=== PATIENT | male | born 1955 | race Caucasian/White ===

== ENCOUNTER 2018-07-28 19:03 | Inpatient (IN) | payer MEDICARE ==
[~2018-07-28] VITALS: Ht 185.4 cm; Wt 77.1 kg
--- NOTE | ~2018-07-28 | CN ---
PATIENT NAME:SERVANDO HAYES MEDICAL RECORD: [id number] : 59 LOCATION:D.MS [id number] ADMIT DATE: 07/28/18 ACCOUNT: [id number] CONSULTING PHYSICIAN: CHARY SOMMERS MD REFERRING PHYSICIAN: ARGELIA GROSS MD DATE OF CONSULTATION: 07/31/2018 HISTORY OF PRESENT ILLNESS: A 63-year-old gentleman with a history of cirrhosis, severe obstructive pulmonary disease. Admitted with shortness of breath, volume retention, point of freddy orthopnea, PND. Had some atypical chest pain, it is between the scapular region. This is recurrent exacerbation. By his report, it is improved markedly since admission here. Feels close to baseline. Symptomatology resolved. Cardiac enzymes are negative. Echocardiography shows normal LV function. ALLERGIES: None known. MEDICATIONS: On admit include Carafate 1 g a.c. and at bedtime, prednisone 2.5 every day, Herndon 10/325 one every 6 hours p.r.n., Lasix 10 every day. REVIEW OF SYSTEMS: The patient reports easy bruising but reports no swollen glands. The patient reports no fever, no night sweats, no significant weight gain, no significant weight loss. No significant exercise tolerance. The patient reports no dry eyes, no irritation, no vision change. Patient reports no difficulty hearing and no ear pain. Patient reports no frequent nose bleeds or nose and sinus problems. Patient reports on arm pain on exertion. No shortness of breath while lying down. No history of heart murmur. Patient reports no cough, no wheezing or coughing up blood. Patient reports no abdominal pain, no vomiting. Normal appetite. No diarrhea and not vomiting blood. No nausea and no constipation. Patient reports no incontinence. No difficulty urinating. No hematuria. No increased frequency. Patient reports no muscle aches. No weakness, no arthralgias, no back pain. No swelling of the extremities. Patient reports no abnormal mole, no jaundice, no rashes. Reports no loss of consciousness. No weakness and no numbness. No seizures, dizziness, or headaches. The patient reports no depression, no sleep disturbance, feeling safe in a relationship and no alcohol abuse. Patient reports on fatigue. Reports no runny nose or sinus pressure. No itching, no hives, and no frequent sneezing. PHYSICAL EXAMINATION: GENERAL: Somewhat chronically ill-appearing gentleman, in no acute distress. VITAL SIGNS: Blood pressure 124/64, pulse 96 and regular. HEENT: Normocephalic, atraumatic. NECK: No bruits noted. HEART: Regular. No gallops noted. LUNGS: Few expiratory wheezes, otherwise good air excursion. ABDOMEN: Soft, nontender. EXTREMITIES: Pulses 2+. There is 1+ edema. IMPRESSION: Atypical pain. In light of enzymes and echocardiograph study, doubt this is true cardiac. Agree with current management. No contraindication to discharge from my standpoint. TRANSINT:[id number] Voice Confirmation ID: [id number] DOCUMENT ID: [id number] CONSULT REPORT [id number] SERVANDO HAYES,CHARY Monaco MD at 1150 CC: [id number] DICTATION DATE: 07/31/18 1020 MANAGER COMMERCIAL REAL ESTATE: 07/31/18 1152 ADM IN [facility] [address] [place] [address]
--- NOTE | ~2018-07-28 | MORECARE ---
CASE MANAGEMENT DISCHARGE SUMMARY PATIENT: SERVANDO HAYES UNIT: [id number] ADM DATE: 07/28/18 AGE: 63 : 59 SEX: M ROOM/BED: D.2229 AUTHOR: MELODY,DOC PHYSICIAN: REFERRING PHYSICIAN: ARGELIA GROSS MD DATE OF SERVICE: 08/02/18 Discharge Plan Patient Name: SERVANDO HAYES Facility: [facility]:[place] : 1955 Planned Disposition: Home with Home Health Anticipated Discharge Date: 08/02/18 Discharge Date: Expected LOS: 5 Initial Reviewer: [email or web address] Initial Review Date: 08/02/2018 Generated: 08/02/18 10:25 am Comments DCP- Discharge Planning Updated by [email or web address]: Juana Hernandez on 08/02/18 8:[address] I called [facility] in [place], they are already supplying patient with NIPPV at his daughter's house in [facility]. I spoke with Kendell and he states [facility] set it up in October. States it is a Resmed Astrol, Settings: iVAPS with PS 6 (minimum) and 20 (maximum) Peep is 10 and Target Vt is 500ml. [facility] CM will continue to follow and assist with discharge planning/needs. DCP- Discharge Planning Updated by [email or web address]: Juana Hernandez on 08/02/18 8:[address] Patient Name: SERVANDO HAYES Admission Status: ER Accout number: [id number] Admission Date: 07-28-2018 : 1955 Admission Diagnosis:CHRONIC OBSTRUCTIVE PULMONARY DISEASE W (ACUTE) EXACERB Attending: ARGELIA GROSS Current LOS: 5 Anticipated DC Date: 08-02-2018 Planned Disposition: Home with Home Health Primary Insurance: [facility] MEDICARE SOLUTIONS Discharge Planning Comments: CM met with patient to discuss discharge planning, he is alone in the room. States he lives with his daughter and her baby. States his daughter will pick him up on discharge. States he uses a [facility] in [place] and "Kendell" takes care of me #[phone]. I will call this number for Trilogy or NIPPV. States he also has home health, unsure of name. States they come out twice a week and also have PT twice a week. I will try and find out what HHS he uses. Denies further needs other than Trilogy that was discussed. CM will continue to follow and assist with discharge planning/needs. Marine Services Technician: Juana David DCPIA - Discharge Planning Initial Assessment Updated by [email or web address]: Juana Colladobrittney on 08/02/18 9:03 am * Is the patient Alert and Oriented? Yes * How many steps to enter\\exit or inside your home? Ramp/0 * PCP Dr. Demarcus Borja in [facility] * Pharmacy [facility] in [place] * Preadmission Environment Home with Family * ADLs Partial Dependent * Partial ADLs (Assistance needed) Ambulation * Equipment CPAP Nebulizer Other Oxygen Walker * Other Equipment Portable oxygen Scooter (Rascal * List name and contact numbers for known caregivers / representatives who currently or will assist patient after discharge: Ludwig - DTR - [phone] * Verbal permission to speak to the caregivers and representatives has been obtained from the patient. Yes * Community resources currently utilized Home Health * Please name any agencies selected above. Unsure of Name of home health * Additional services required to return to the preadmission environment? Yes * Can the patient safely return to the preadmission environment? Yes * Has this patient been hospitalized within the prior 30 days at any hospital? No Last DP export: 08/02/18 8:07 Patient Name: ESRVANDO HAYES Page [phone] at 0925 All edits/amendments must be made on the electronic document DICTATION DATE: 08/02/18924 MACHINE SET UP OPERATOR PAPER GOODS: TRISTAN 08/02/18924 RPT#: [id number] DC DATE: STATUS: ADM IN [facility] [address] [place] [address] END OF REPORT
--- NOTE | ~2018-07-28 | MORECARE ---
CASE MANAGEMENT DISCHARGE SUMMARY PATIENT: SERVANDO HAYES UNIT: [id number] ADM DATE: 07/28/18 AGE: 63 : 59 SEX: M ROOM/BED: D.2229 AUTHOR: MELODY,DOC PHYSICIAN: REFERRING PHYSICIAN: ARGELIA GROSS MD DATE OF SERVICE: 08/03/18 Discharge Plan Patient Name: SERVANDO HAYES Facility: [facility]:[place] : 1955 Planned Disposition: Home with Home Health Anticipated Discharge Date: 08/02/18 Discharge Date: 08/02/2018 Expected LOS: 5 Initial Reviewer: [email or web address] Initial Review Date: 08/02/2018 Generated: 08/03/18 10:27 am Comments DCP- Discharge Planning Updated by [email or web address]: Juana Hernandez on 08/02/18 1:[address] I called all home health services and he is current with [facility] home health. Spoke with Pepe at [facility] and informed he is being discharged today. Clinical faxed to [facility]. He denies other needs at this time. I did inform the patient that he already has NIPPV set up at his home with [employer] and he voiced understanding. His daughter will take him home today, discharging with resumption of home health services. CM will continue to follow and assist with discharge planning/needs. DCP- Discharge Planning Updated by [email or web address]: Juana Hernandez on 08/02/18 8:[address] I called [facility] in [place], they are already supplying patient with NIPPV at his daughter's house in [facility]. I spoke with Kendell and he states [facility] set it up in October. States it is a Resmed Astrol, Settings: iVAPS with PS 6 (minimum) and 20 (maximum) Peep is 10 and Target Vt is 500ml. Kendell is unsure of what [facility] he is using. CM will continue to follow and assist with discharge planning/needs. DCP- Discharge Planning Updated by [email or web address]: Juana Hernandez on 08/02/18 8:[address] Patient Name: SERVANDO HAYES Admission Status: ER Accout number: [id number] Admission Date: 07-28-2018 : 1955 Admission Diagnosis:CHRONIC OBSTRUCTIVE PULMONARY DISEASE W (ACUTE) EXACERB Attending: ARGELIA GROSS Current LOS: 5 Anticipated DC Date: 08-02-2018 Planned Disposition: Home with Home Health Primary Insurance: [facility] MEDICARE SOLUTIONS Discharge Planning Comments: CM met with patient to discuss discharge planning, he is alone in the room. States he lives with his daughter and her baby. States his daughter will pick him up on discharge. States he uses a [facility] in [place] and "Kendell" takes care of me #[phone]. I will call this number for Trilogy or NIPPV. States he also has home health, unsure of name. States they come out twice a week and also have PT twice a week. I will try and find out what HHS he uses. Denies further needs other than Trilogy that was discussed. CM will continue to follow and assist with discharge planning/needs. Chick Room Supervisor: Juana Hernandez DCPIA - Discharge Planning Initial Assessment Updated by [id number]: Juana Hernandez on 08/02/18 9:03 am * Is the patient Alert and Oriented? Yes * How many steps to enter\\exit or inside your home? Ramp/0 * PCP Dr[facility] Demarcus Borja in [facility] * Pharmacy [facility] in [place] * Preadmission Environment Home with Family * ADLs Partial Dependent * Partial ADLs (Assistance needed) Ambulation * Equipment CPAP Nebulizer Other Oxygen Walker * Other Equipment Portable oxygen Scooter (Rascal * List name and contact numbers for known caregivers / representatives who currently or will assist patient after discharge: Ludwig [facility] - [phone] * Verbal permission to speak to the caregivers and representatives has been obtained from the patient. Yes * Community resources currently utilized Home Health * Please name any agencies selected above. Unsure of Name of home health * Additional services required to return to the preadmission environment? Yes * Can the patient safely return to the preadmission environment? Yes * Has this patient been hospitalized within the prior 30 days at any hospital? No Coverage Notice Reviewer: [email or web address] - Juana Hernandez Notice Issued Date-Time: 08/02/2018 13:58 Notice Type: IM Discharge Notice Notice Delivered To: Patient Relationship to Patient: Stoneworking Belt Sander Name: Delivery Method: HAND - Hand Delivered Hannah Days: Prior Verbal Notification: Recipient Understood Notice: Yes Recipient Signature: Yes Med Rec Note Co-signed by Attending: Coverage Notice Comment: IMM explained, signed, copy given, original placed in MR Last DP export: 08/02/18 1:03 Patient Name: SERVANDO HAYES Page 88229 at 0928 All edits/amendments must be made on the electronic document DICTATION DATE: 08/03/18926 PULP MAKING PLANT OPERATOR: TRISTAN 08/03/18926 RPT#: [id number] DC DATE:08/02/18 STATUS: DIS IN [facility] [address] [place] [address] END OF REPORT
--- NOTE | ~2018-07-28 | MORECARE ---
CASE MANAGEMENT DISCHARGE SUMMARY PATIENT: SERVANDO HAYES UNIT: [id number] ADM DATE: 07/28/18 AGE: 63 : 59 SEX: M ROOM/BED: D.2229 AUTHOR: MELODY,DOC PHYSICIAN: REFERRING PHYSICIAN: ARGELIA GROSS MD DATE OF SERVICE: 08/02/18 Discharge Plan Patient Name: SERVANDO HAYES Facility: [facility]:[place] : 1955 Planned Disposition: Home with Home Health Anticipated Discharge Date: 08/02/18 Discharge Date: Expected LOS: 5 Initial Reviewer: [email or web address] Initial Review Date: 08/02/2018 Generated: 08/02/18 10:07 am Comments DCP- Discharge Planning Updated by [email or web address]: Juana Hernandez on 08/02/18 8:[address] Patient Name: SERVANDO HAYES Admission Status: ER Accout number: [id number] Admission Date: 07-28-2018 : 1955 Admission Diagnosis:CHRONIC OBSTRUCTIVE PULMONARY DISEASE W (ACUTE) EXACERB Attending: ARGELIA GROSS Current LOS: 5 Anticipated DC Date: 08-02-2018 Planned Disposition: Home with Home Health Primary Insurance: [facility] MEDICARE SOLUTIONS Discharge Planning Comments: CM met with patient to discuss discharge planning, he is alone in the room. States he lives with his daughter and her baby. States his daughter will pick him up on discharge. States he uses a [facility] in [place] and "Kendell" takes care of me #[phone]. I will call this number for Trilogy or NIPPV. States he also has home health, unsure of name. States they come out twice a week and also have PT twice a week. I will try and find out what HHS he uses. Denies further needs other than Trilogy that was discussed. CM will continue to follow and assist with discharge planning/needs. Supervisor Audit Clerks: Juana Hernandez DCPIA - Discharge Planning Initial Assessment Updated by [email or web address]: Juana Hernandez on 08/02/18 9:03 am * Is the patient Alert and Oriented? Yes * How many steps to enter\\exit or inside your home? Ramp/0 * PCP Dr[facility] Demarcus Borja in [facility] * Pharmacy [facility] in [place] * Preadmission Environment Home with Family * ADLs Partial Dependent * Partial ADLs (Assistance needed) Ambulation * Equipment CPAP Nebulizer Other Oxygen Walker * Other Equipment Portable oxygen Scooter (Rascal * List name and contact numbers for known caregivers / representatives who currently or will assist patient after discharge: Ludwig - DTR - [phone] * Verbal permission to speak to the caregivers and representatives has been obtained from the patient. Yes * Community resources currently utilized Home Health * Please name any agencies selected above. Unsure of Name of home health * Additional services required to return to the preadmission environment? Yes * Can the patient safely return to the preadmission environment? Yes * Has this patient been hospitalized within the prior 30 days at any hospital? No Patient Name: SERVANDO HAYES Page 12799 at 0907 All edits/amendments must be made on the electronic document DICTATION DATE: 08/02/18906 RIGGING WORKER: TRISTAN 08/02/18906 RPT#: [id number] DC DATE: STATUS: ADM IN [facility] [address] [place] [address] END OF REPORT
--- NOTE | ~2018-07-28 | MORECARE ---
CASE MANAGEMENT DISCHARGE SUMMARY PATIENT: SERVANDO HAYES UNIT: [id number] ADM DATE: 07/28/18 AGE: 63 : 59 SEX: M ROOM/BED: D.2229 AUTHOR: MELODY,DOC PHYSICIAN: REFERRING PHYSICIAN: ARGELIA GROSS MD DATE OF SERVICE: 08/02/18 Discharge Plan Patient Name: SERVANDO HAYES Facility: [facility]:[place] : 1955 Planned Disposition: Home with Home Health Anticipated Discharge Date: 08/02/18 Discharge Date: Expected LOS: 5 Initial Reviewer: [email or web address] Initial Review Date: 08/02/2018 Generated: 08/02/18 3:02 pm Comments DCP- Discharge Planning Updated by [email or web address]: Juana Hernandez on 08/02/18 1:[address] I called all home health services and he is current with [facility] home health. Spoke with Pepe at [facility] and informed he is being discharged today. Clinical faxed to [facility]. He denies other needs at this time. I did inform the patient that he already has NIPPV set up at his home with [employer] and he voiced understanding. His daughter will take him home today, discharging with resumption of home health services. CM will continue to follow and assist with discharge planning/needs. DCP- Discharge Planning Updated by [email or web address]: Juana Hernandez on 08/02/18 8:[address] I called [facility] in [place], they are already supplying patient with NIPPV at his daughter's house in [facility]. I spoke with Kendell and he states [facility] set it up in October. States it is a Resmed Astrol, Settings: iVAPS with PS 6 (minimum) and 20 (maximum) Peep is 10 and Target Vt is 500ml. Kendell is unsure of what [facility] he is using. CM will continue to follow and assist with discharge planning/needs. DCP- Discharge Planning Updated by [email or web address]: Juana Hernandez on 08/02/18 8:[address] Patient Name: SERVANDO HAYES Admission Status: ER Accout number: [id number] Admission Date: 07-28-2018 : 1955 Admission Diagnosis:CHRONIC OBSTRUCTIVE PULMONARY DISEASE W (ACUTE) EXACERB Attending: ARGELIA GROSS Current LOS: 5 Anticipated DC Date: 08-02-2018 Planned Disposition: Home with Home Health Primary Insurance: [facility] MEDICARE SOLUTIONS Discharge Planning Comments: CM met with patient to discuss discharge planning, he is alone in the room. States he lives with his daughter and her baby. States his daughter will pick him up on discharge. States he uses a [facility] in [place] and "Kendell" takes care of me #[phone]. I will call this number for Trilogy or NIPPV. States he also has home health, unsure of name. States they come out twice a week and also have PT twice a week. I will try and find out what HHS he uses. Denies further needs other than Trilogy that was discussed. CM will continue to follow and assist with discharge planning/needs. Burnishing Machine Operator: Juana Hernandez DCPIA - Discharge Planning Initial Assessment Updated by [email or web address]: Juana Hernandez on 08/02/18 9:03 am * Is the patient Alert and Oriented? Yes * How many steps to enter\\exit or inside your home? Ramp/0 * PCP Dr[facility] Demarcus Borja in [facility] * Pharmacy [facility] in [place] * Preadmission Environment Home with Family * ADLs Partial Dependent * Partial ADLs (Assistance needed) Ambulation * Equipment CPAP Nebulizer Other Oxygen Walker * Other Equipment Portable oxygen Scooter (Rascal * List name and contact numbers for known caregivers / representatives who currently or will assist patient after discharge: Ludwig [facility] - [phone] * Verbal permission to speak to the caregivers and representatives has been obtained from the patient. Yes * Community resources currently utilized Home Health * Please name any agencies selected above. Unsure of Name of home health * Additional services required to return to the preadmission environment? Yes * Can the patient safely return to the preadmission environment? Yes * Has this patient been hospitalized within the prior 30 days at any hospital? No External Providers External Provider: OTHER-OTHER Next Contact Date: Service Request Date: Service Type: Resolution: Reviewer: Comments: Coverage Notice Reviewer: [id number] - Juana Hernandez Notice Issued Date-Time: 08/02/2018 13:58 Notice Type: IM Discharge Notice Notice Delivered To: Patient Relationship to Patient: Dye House Vat Worker Name: Delivery Method: HAND - Hand Delivered Hannah Days: Prior Verbal Notification: Recipient Understood Notice: Yes Recipient Signature: Yes Med Rec Note Co-signed by Attending: Coverage Notice Comment: IMM explained, signed, copy given, original placed in MR Last DP export: 08/02/18 8:25 Patient Name: SERVANDO HAYES Page [phone] at 1403 All edits/amendments must be made on the electronic document DICTATION DATE: 08/02/181401 COLOR BUFFER: TRISTAN 08/02/181401 RPT#: [id number] DC DATE: STATUS: ADM IN [facility] [address] [place] [address] END OF REPORT
--- NOTE | ~2018-07-28 | EC ---
PATIENT:SERVANDO HAYES DATE OF SERVICE: 07/28/18 SEX: M MEDICAL RECORD: [id number] DATE OF : [birth year] LOCATION:D.MS Potst222 AGE OF PATIENT: 63 ADMISSION DATE: 07/28/18 REFERRING PHYSICIAN: INTERPRETING PHYSICIAN: CALEB SALCEDO MD ECHOCARDIOGRAM REPORT ECHO CHARGES 5 ECHO LIMITED Date: 07/30/18 CLINICAL DIAGNOSIS: ASSESS LV FUN, SOB ECHOCARDIOGRAPHIC MEASUREMENTS (adult normal given) AC root (d.<3.7cm) cm LV Septum d (<1.2 cm> cm Valve Excursion cm LV Septum (systole) cm Left Atria (s.<4.0cm> cm LVPW d(<1.2cm) cm RV (d.<2.3cm) cm LVPW (sytole) cm LV diastole(<5.6CM) 4.6 cm MV E-F(>70mm/sec) cm LV systole 3.1 cm LVOT Diameter cm MV exc.(>10mm) cm Est.ejection fraction (50-75%) % DOPPLER: LVIT cm/sec A cm/sec E cm/sec LA cm/sec RVSP 21 mmHg LVOT cm/sec AOP1/2T m/s Asc. Ao cm/sec RVOT cm/sec RA cm/sec PA cm/sec AV Gradient Peak mmHg AV Mean mmHg AV Area cm MV Gradient Peak mmHg MV Mean mmHg MV Area cm COMMENTS: Rock Climbing Team Member: Tatiana MARTINEZ Assembler Corncob Pipes: Maribell Salcedo TAPE# PACS Pericardial Effusion N DATE OF SERVICE: 07/30/2018 PROCEDURE: Echocardiogram. FINDINGS: 1. Left ventricular chamber size is within normal limits. Left ventricular systolic function is normal. Overall ejection fraction estimated at 60%. 2. Left atrium, right atrium, and right ventricle chamber sizes are within normal limits. 3. Valvular structures have normal structure and motion. ECHOCARDIOGRAM REPORT [id number] SERVANDO HAYES 4. Doppler interrogation reveals no significant valvular insufficiency or stenosis and pulmonary systolic pressure is estimated at 21 mmHg. 5. No evidence of pericardial effusion or left ventricular thrombus. TRANSINT:[id number] Voice Confirmation ID: [id number] DOCUMENT ID: [id number] CALEB SALCEDO MD at 1031 CC: [id number] DICTATION DATE: 07/30/18 1349 COOK LARDER: 07/30/18 1446 DIS IN 08/02/18 [facility] [address] [address] [place]
[2018-07-28] MEDS ORDERED: NORCO 10-325 TA1 TAB PO (19:07)
[2018-07-28] MEDS ORDERED: PREDNISONE2.5 MG (19:07)
[2018-07-28] MEDS ORDERED: FUROSEMIDE10 MG/M1 (19:07)
[2018-07-28] MEDS ORDERED: POTASSIUM99 M1 PO (19:07)
[2018-07-28] MEDS ORDERED: XANAX0.25 MG PO (19:07)
[2018-07-28] MEDS ORDERED: OMEPRAZOLE20 M1 (19:08)
[2018-07-28] MEDS ORDERED: MYLANTA II SUSP30 ML PO (19:08)
[2018-07-28] MEDS ORDERED: CHOLESTEROL PILL (19:08)
[2018-07-28] MEDS ORDERED: CARAFATE1 G (19:08)
[2018-07-28 19:49] LABS: BASOPHILS 0.1 % (0-2); EOSINOPHILS 0.5 % (0-7); HEMATOCRIT 44.3 % (42.0-54.0); HEMOGLOBIN 14.2 g/dL (13.5-17.5); MCH 31.2 pg (26.0-34.0); MCHC 32.1 g/dL (31.0-37.0); MCV 97.4 fL (80.0-100.0); MEAN PLATELET VOLUME 9.8 fL (7.4-10.4); MONOCYTES 9.1 % (2-11); NEUTROPHILS 81.3 % (40-80); PLATELET COUNT 155 10x3/uL (130-400); RBC 4.55 10x6/uL (4.20-6.10); RDW 14.1 % (11.5-14.5); WBC 14.5 10x3/uL (4.8-10.8)
[2018-07-28 20:09] LABS: ALBUMIN 3.3 g/dL (3.4-5.0); ALKALINE PHOSPHATASE 193 U/L (46-116); ALT (SGPT) 81 U/L (10-68); BILIRUBIN - TOTAL 0.47 mg/dL (0.2-1.3); CALC OSMOLALITY 279 mosm/kg (275-300); CALCIUM 9.3 mg/dL (8.5-10.1); CHLORIDE - SERUM 96 mmol/L (98-107); CREATINE KINASE 27 UL (21-232); CREATININE - SERUM 0.8 mg/dL (0.6-1.3); GLUCOSE 112 mg/dL (74-106); MAGNESIUM - SERUM 3.1 mg/dL (1.8-2.4); PROTEIN - SERUM 6.7 g/dL (6.4-8.2); SODIUM 140 mmol/L (136-145); TROPONIN-I 0.024 ng/mL (0.000-0.060); UREA NITROGEN 13 mg/dL (7-18); eGFR NON AFRICAN AMERICAN > 90 mL/min (90-120)
[2018-07-28 20:11] LABS: CARBON DIOXIDE 47.8 mmol/L (21.0-32.0); POTASSIUM - SERUM 2.7 mmol/L (3.5-5.1)
[2018-07-29 00:23] VITALS: BP 110/79; BMI 22.4
[2018-07-29 05:00] VITALS: BP 127/88
[2018-07-29 08:35] VITALS: BP 121/85
[2018-07-29 10:02] LABS: CALCIUM 8.3 mg/dL (8.5-10.1); CHLORIDE - SERUM 97 mmol/L (98-107); CREATININE - SERUM 0.8 mg/dL (0.6-1.3); SODIUM 140 mmol/L (136-145); eGFR NON AFRICAN AMERICAN > 90 mL/min (90-120)
[2018-07-29 10:08] LABS: CALC OSMOLALITY 290 mosm/kg (275-300); GLUCOSE 277 mg/dL (74-106); POTASSIUM - SERUM 4.2 mmol/L (3.5-5.1); UREA NITROGEN 17 mg/dL (7-18)
[2018-07-29 10:09] LABS: CARBON DIOXIDE 42.9 mmol/L (21.0-32.0)
[2018-07-29 10:13] LABS: BASOPHILS 0 % (0-2); EOSINOPHILS 0 % (0-7); HEMATOCRIT 39.3 % (42.0-54.0); HEMOGLOBIN 12.5 g/dL (13.5-17.5); IMMATURE GRANULOCYTES 0.9 % (0-5); LYMPHOCYTES 4.2 % (15-50); MCHC 31.8 g/dL (31.0-37.0); MCV 97.5 fL (80.0-100.0); MEAN PLATELET VOLUME 10.1 fL (7.4-10.4); MONOCYTES 3.7 % (2-11); NEUTROPHILS 91.2 % (40-80); PLATELET COUNT 137 10x3/uL (130-400); RBC 4.03 10x6/uL (4.20-6.10); RDW 14.1 % (11.5-14.5); WBC 7.4 10x3/uL (4.8-10.8)
[2018-07-29 11:35] VITALS: Ht 185.4 cm; Wt 77.1 kg
[2018-07-29 13:48] VITALS: BP 114/83
[2018-07-29 17:53] VITALS: BP 109/87
[2018-07-29 20:00] VITALS: BP 106/78
[2018-07-30 04:00] VITALS: BP 110/74
[2018-07-30 05:43] LABS: BASOPHILS 0 % (0-2); EOSINOPHILS 0 % (0-7); HEMATOCRIT 37.3 % (42.0-54.0); HEMOGLOBIN 11.8 g/dL (13.5-17.5); IMMATURE GRANULOCYTES 0.6 % (0-5); LYMPHOCYTES 2.4 % (15-50); MCH 30.7 pg (26.0-34.0); MCHC 31.6 g/dL (31.0-37.0); MCV 97.1 fL (80.0-100.0); MEAN PLATELET VOLUME 10.2 fL (7.4-10.4); MONOCYTES 5.8 % (2-11); NEUTROPHILS 91.2 % (40-80); PLATELET COUNT 155 10x3/uL (130-400); RBC 3.84 10x6/uL (4.20-6.10); RDW 14.2 % (11.5-14.5)
[2018-07-30 05:59] LABS: CALCIUM 8.7 mg/dL (8.5-10.1); CHLORIDE - SERUM 97 mmol/L (98-107); CREATININE - SERUM 0.8 mg/dL (0.6-1.3); POTASSIUM - SERUM 4.3 mmol/L (3.5-5.1); SODIUM 139 mmol/L (136-145); UREA NITROGEN 17 mg/dL (7-18); eGFR NON AFRICAN AMERICAN > 90 mL/min (90-120)
[2018-07-30 06:05] LABS: CALC OSMOLALITY 283 mosm/kg (275-300); GLUCOSE 162 mg/dL (74-106)
[2018-07-30 06:09] LABS: WBC 13.1 10x3/uL (4.8-10.8)
[2018-07-30 06:11] LABS: CARBON DIOXIDE 41.6 mmol/L (21.0-32.0)
[2018-07-30 08:34] VITALS: BP 109/78
[2018-07-30 12:22] VITALS: BP 120/76
[2018-07-30 13:33] LABS: CKMB 0.4 U/L (0.0-3.6); CREATINE KINASE 14 UL (21-232)
[2018-07-30 13:34] LABS: TROPONIN-I < 0.017 ng/mL (0.000-0.060)
[2018-07-30 16:35] VITALS: BP 136/82
[2018-07-30 21:16] VITALS: BP 102/69
[2018-07-31 04:17] VITALS: BP 110/78
[2018-07-31 06:43] LABS: BASOPHILS 0 % (0-2); EOSINOPHILS 0 % (0-7); HEMATOCRIT 36.2 % (42.0-54.0); HEMOGLOBIN 11.4 g/dL (13.5-17.5); IMMATURE GRANULOCYTES 0.9 % (0-5); LYMPHOCYTES 1.4 % (15-50); MCH 30.5 pg (26.0-34.0); MCHC 31.5 g/dL (31.0-37.0); MCV 96.8 fL (80.0-100.0); MEAN PLATELET VOLUME 10.2 fL (7.4-10.4); MONOCYTES 4.7 % (2-11); PLATELET COUNT 150 10x3/uL (130-400); RBC 3.74 10x6/uL (4.20-6.10); RDW 14.2 % (11.5-14.5); WBC 11.5 10x3/uL (4.8-10.8)
[2018-07-31 07:08] LABS: CALCIUM 8.3 mg/dL (8.5-10.1); CHLORIDE - SERUM 97 mmol/L (98-107); CREATININE - SERUM 0.9 mg/dL (0.6-1.3); POTASSIUM - SERUM 4.1 mmol/L (3.5-5.1); SODIUM 138 mmol/L (136-145); eGFR NON AFRICAN AMERICAN > 90 mL/min (90-120)
[2018-07-31 07:11] LABS: CALC OSMOLALITY 287 mosm/kg (275-300); CARBON DIOXIDE 40.6 mmol/L (21.0-32.0); GLUCOSE 269 mg/dL (74-106); UREA NITROGEN 22 mg/dL (7-18)
[2018-07-31 08:43] VITALS: BP 119/79
[2018-07-31 21:31] VITALS: BP 123/80
[2018-08-01 06:03] VITALS: BP 108/71
[2018-08-01 07:48] LABS: BASOPHILS 0.1 % (0-2); EOSINOPHILS 0 % (0-7); HEMATOCRIT 36.8 % (42.0-54.0); IMMATURE GRANULOCYTES 1.5 % (0-5); LYMPHOCYTES 1.9 % (15-50); MCH 31.1 pg (26.0-34.0); MCHC 32.6 g/dL (31.0-37.0); MCV 95.3 fL (80.0-100.0); MEAN PLATELET VOLUME 10.1 fL (7.4-10.4); MONOCYTES 4.3 % (2-11); NEUTROPHILS 92.2 % (40-80); PLATELET COUNT 152 10x3/uL (130-400); RBC 3.86 10x6/uL (4.20-6.10); WBC 13.4 10x3/uL (4.8-10.8)
[2018-08-01 07:58] LABS: CALC OSMOLALITY 283 mosm/kg (275-300); CALCIUM 8.6 mg/dL (8.5-10.1); CHLORIDE - SERUM 100 mmol/L (98-107); CREATININE - SERUM 0.9 mg/dL (0.6-1.3); GLUCOSE 241 mg/dL (74-106); SODIUM 136 mmol/L (136-145); UREA NITROGEN 23 mg/dL (7-18); eGFR NON AFRICAN AMERICAN > 90 mL/min (90-120)
[2018-08-01 14:11] VITALS: BP 110/89
[2018-08-01 20:00] VITALS: BP 113/83
[2018-08-02 05:00] VITALS: BP 107/81
[2018-08-02 06:06] LABS: BASOPHILS 0.2 % (0-2); EOSINOPHILS 0 % (0-7); HEMATOCRIT 38.7 % (42.0-54.0); HEMOGLOBIN 12.7 g/dL (13.5-17.5); IMMATURE GRANULOCYTES 2.6 % (0-5); LYMPHOCYTES 2.4 % (15-50); MCH 30.9 pg (26.0-34.0); MCHC 32.8 g/dL (31.0-37.0); MCV 94.2 fL (80.0-100.0); MEAN PLATELET VOLUME 10.1 fL (7.4-10.4); MONOCYTES 6.2 % (2-11); NEUTROPHILS 88.6 % (40-80); PLATELET COUNT 166 10x3/uL (130-400); RBC 4.11 10x6/uL (4.20-6.10); RDW 13.8 % (11.5-14.5)
[2018-08-02 06:27] LABS: CALC OSMOLALITY 290 mosm/kg (275-300); CALCIUM 8.6 mg/dL (8.5-10.1); CARBON DIOXIDE 34.9 mmol/L (21.0-32.0); CHLORIDE - SERUM 100 mmol/L (98-107); CREATININE - SERUM 0.9 mg/dL (0.6-1.3); GLUCOSE 252 mg/dL (74-106); POTASSIUM - SERUM 3.8 mmol/L (3.5-5.1); SODIUM 139 mmol/L (136-145); UREA NITROGEN 25 mg/dL (7-18); eGFR NON AFRICAN AMERICAN > 90 mL/min (90-120)
[2018-08-02 08:21] VITALS: BP 106/83
[2018-08-02 12:12] LABS: IMMUNOGLOBULIN A 196 mg/dL (61-437); IMMUNOGLOBULIN G 309 mg/dL (700-1600)
[2018-08-02 12:38] VITALS: BP 117/72
[2018-08-02] MEDS ORDERED: PULMICORT0.5 MG/21 UPD (14:04)
[2018-08-02] MEDS ORDERED: MUCINEX DM ER1 EAC1 PO (14:04)
[2018-08-02] MEDS ORDERED: TESSALON PERLE100 MG PO (14:04)
[2018-08-02] MEDS ORDERED: SINGULAIR10 MG PO (14:05)
[2018-08-02] MEDS ORDERED: FLORAJEN3 CAPS460 MG PO (14:05)
[2018-08-02] MEDS ORDERED: PROTONIX40 MG PO (14:05)
[2018-08-02] MEDS ORDERED: DALIRESP500 MCG PO (14:05)
[2018-08-02] MEDS ORDERED: FLUTICASONE PRO16 GM NASAL (14:05)
[2018-08-02] MEDS ORDERED: CARAFATE1 G/10 ML PO (14:06)
[2018-08-02] MEDS ORDERED: IPRAT-ALBUT 0.5-3 ML INH (14:06)
[2018-08-02] MEDS ORDERED: ALBUTEROL2.5 MG/3 M INH (14:06)
[2018-08-02] MEDS ORDERED: BROVANA15 MCG/2 M INH (14:06)
[2018-08-02] MEDS ORDERED: PREDNISONE10 MG PO (14:07)
[2018-08-02] MEDS ORDERED: LEVAQUIN750 MG PO (14:07)
[2018-08-04 07:28] LABS: IMMUNOGLOBULIN E 397 IU/mL (0-100)
== END 2018-08-02 15:24 | disposition home or self-care (01) | DRG 189 ==
LOC: D.ER 19:03 → D.EDHOLD 20:46 → EDBD 20:46 → D.MS 20:46
PROVIDERS: Emergency Medicine; Internal Medicine Nephrology; Internal Medicine Pulmonary Disease
DX: J96.22 Acute and chronic respiratory failure with hypercapnia (principal); J44.1 Chronic obstructive pulmonary disease with (acute) exacerbation; E87.2 Acidosis; J44.0 Chronic obstructive pulmonary disease with (acute) lower respiratory infection; J96.21 Acute and chronic respiratory failure with hypoxia; E87.6 Hypokalemia; I50.9 Heart failure, unspecified; F17.200 Nicotine dependence, unspecified, uncomplicated; K21.9 Gastro-esophageal reflux disease without esophagitis; J20.9 Acute bronchitis, unspecified

== ENCOUNTER 2018-08-16 15:50 | Inpatient (IN) | payer MEDICARE ==
[~2018-08-16] VITALS: Ht 185.4 cm; Wt 80.5 kg
--- NOTE | ~2018-08-16 | MORECARE ---
CASE MANAGEMENT DISCHARGE SUMMARY PATIENT: SERVANDO HAYES UNIT: [id number] ADM DATE: 08/16/18 AGE: 63 : 59 SEX: M ROOM/BED: D.2140 AUTHOR: MELODY,DOC PHYSICIAN: REFERRING PHYSICIAN: SHILPI RUSS MD DATE OF SERVICE: 08/25/18 Discharge Plan Patient Name: SERVANDO HAYES Facility: [facility]:[place] : 1955 Planned Disposition: Home with Home Health Anticipated Discharge Date: 08/25/18 Discharge Date: Expected LOS: 9 Initial Reviewer: [id number] Initial Review Date: 08/20/2018 Generated: 08/25/18 5:25 pm Comments DCP- Discharge Planning Updated by [id number]: Navin Geronimo on 08/24/18 5:[address] Patient Name: SERVANDO HAYES Encounter No: [id number] : 1955 Primary Insurance: [facility] MEDICARE SOLUTIONS Anticipated DC Date: 08-24-2018 Planned Disposition: Penitentiary Facility External Planned Provider: [facility], MEDICARE REHAB BED Discharge Planning Comments: CM SPOKE TO MANUEL OF [facility] WHO REPORTS NEEDING PT'S TRILOGY MACHINE SETTINGS WELL PROJECTED DISCHARGE DATE TO PROVIDE TO INSURANCE FOR REHAB CONSIDERATION. CM TO ATTEMPT TO ACQUIRE TRILOGY MACHINE SETTINGS SOON POSSIBLE AND PROVIDE TO [facility]. CM WAITING ADMISSION DETERMINATION AND INSURANCE APPROVAL FOR REHAB AT [facility]. 3Rd Grade Teacher: Navin Geronimo DCP- Discharge Planning Updated by [id number]: Navin Geronimo on 08/23/18 1:[address] Patient Name: SERVANDO HAYES Admission Status: ER Accout number: [id number] Admission Date: 08-16-2018 : 1955 Admission Diagnosis:SHORTNESS OF BREATH Attending: SHILPI RUSS Current LOS: 7 Anticipated DC Date: 08-24-2018 Planned Disposition: Penitentiary Facility Primary Insurance: [facility] MEDICARE SOLUTIONS PLANNED EXTERNAL PROVIDER: [facility], MEDICARE REHAB BED Discharge Planning Comments: CM RECEIVED CALL FROM ANNEMARIE OF INPATIENT REHAB, PT'S INSURANCE HAS DECLINED REHAB INPATIENT AND SUGGESTED PT'S NEEDS CAN BE MET AT LOWER LEVAL OF CARE. CM MET WITH PT IN ROOM, DISCUSSED INSURANCE DECLINATION OF INPATIENT REHAB, PT REPORTS HE WANTS REHAB IN [place] TO HIS FAMILY IN [place] POSSIBLE. CM DISCUSSED [facility], PT IS AGREEABLE AND HAS PREVIOUSLY SIGNED CHOICE FORM. CM SPOKE TO MANUEL OF [facility] WHO MET WITH PT IN ROOM, CM FAXED REFERRAL TO [facility] AT [phone]; CM WAITING ADMISSION DETERMINATION AND INSURANCE APPROVAL FOR REHAB AT [facility]. 3Rd Grade Teacher: Navin Geronimo DCP- Discharge Planning Updated by [id number]: Ruma Pascal on 08/22/18 6:[address] CM SPOKE WITH ANITA SOLAR INSTALLER TECHNICIAN FOR [facility] REHAB SCREENER. PATIENT REQUIRES PREAUTH FROM HIS MANAGED MEDICARE PROVIDER. UPADTE WILL BE PROVIDED AND REHAB WILL FOLLOW UP ON THURSDAY. AWAITING AUTH FOR IP REHAB. DCP- Discharge Planning Updated by [id number]: Navin Geronimo on 08/20/18 5:[address] Patient Name: SERVANDO HAYES Admission Status: ER Accout number: [id number] Admission Date: 08-16-2018 : 1955 Admission Diagnosis:SHORTNESS OF BREATH Attending: SHILPI RUSS Current LOS: 4 Anticipated DC Date: 08-23-2018 Planned Disposition: Inpatient Rehab Primary Insurance: [facility] MEDICARE SOLUTIONS PLANNED EXTERNAL PROVIDER: PLANNED EXTERNAL PROVIDER: [facility] INPATIENT REHAB Discharge Planning Comments: CM RECEIVED INPATIENT REHAB PRESCREENING ORDER, MET WITH PT IN ROOM TO DISCUSS DISCHARGE PLANNING AND NEEDS. PT REPORTS LIVING AT HOME DEPENDENTLY WITH HER ADULT DAUGHTER. PT REPORTS HAVING TRILOGY, HOME OXYGEN, NEBLUIZER AND WALKER WELL A SCOOTER; MEDICAL EQUIPMENT FROM [facility] IN [place]. PT HAS HOME HEALTH WITH [facility]. CM DISCUSSED AVAILABILITY OF HOME HEALTH, REHAB SERVICES AND MEDICAL EQUIPMENT. PT IS AGREEABLE TO REHAB AT [place] WITH PLAN TO DISCHARGE HOME FROM HOSPITAL REHAB; PT REPORTS HIS DAUGHTER WILL PICK HER UP FOR DISCHARGE HOME. PT WOULD LIKE TO TRY INPATIENT REHAB FIRST BUT DOES NOT KNOW IF INSURANCE WILL APPROVE IT HE WAS IN POST ACUTE CARE IN [place] TWO WEEKS AGO. PT STATES THAT IF INSURANCE WILL NOT PAY FOR INPATIENT REHAB AT [place], HE WILL CONSENT TO [facility] RE[facility] WITH NO PROVIDER PREFERNECE, CHOICE SIGNED FOR SNF WITH NO PROVIDER PREFERENCE. IMPORTANT MESSAGE FROM MEDICARE PROVIDED AND EXPLAINED. CM WAITING COMPLETION OF INPATIENT REHAB PRESCREENING AND ADMISSION DETERMINATION FROM [facility] INPATIENT REHAB. NAVIN GERONIMO, CASE MANAGEMENT DCP- Discharge Planning Updated by [id number]: Sulma Wang on 08/19/18 10:[address] I RECEIVED A CALL FROM MARILYNN LAKHANI ACTIVE DIRECTORY SYSTEMS ADMINISTRATOR WITH CHRONIC DISEASE DIVISION OF [facility] ([phone] EXT. [phone]). SHE ASKED FOR AN UPDATE ON THE PATIENTS STATUS AND DISCHARGE PLANS. SHE EXPLAINED THAT HE HAS BEEN A FREQUENT FLYER FOR HOSPITAL ADMISSIONS, AND HAD BEEN UNSAFE TO LIVE AT HOME ALONE. SHE STATED THAT HE MOVED IN WITH HIS DAUGHTER, WHO WORKS AND HAS A CHILD, AND SHE WAS UNSURE IF HE WOULD BE SAFE TO RETURN HOME. I EXPLAINED THAT WE RECEIVED AN ORDER FOR REHAB PRESCREEN ON THE PATIENT, AND THEREFORE WE WOULD BE WORKING ON REHAB. I READ HIS PHYSICAL THERAPY EVAL AND NOTES TO HER. WE DON'T BELIEVE THAT IPR WILL BE GOOD FOR THE PATIENT, AND THAT SNF MAY BE THE MOST APPROPRIATE. SHE HAS REQUESTED THAT SHE BE CALLED IF SHE COULD BE OF ASSISTANCE IN ANY WAY WITH DISCHARGE. DCPIA - Discharge Planning Initial Assessment Updated by [id number]: Navin Geronimo on 08/20/18 6:01 pm * Is the patient Alert and Oriented? Yes * How many steps to enter\exit or inside your home? RAMP * PCP DR. KOBE FERREIRA IN [place] * Pharmacy [facility] * Preadmission Environment Home with Family * ADLs Partial Dependent * Partial ADLs (Assistance needed) Ambulation * Equipment Nebulizer Other Oxygen Walker * Other Equipment HOME AND PORTABLE OXYGEN TRILOGY MACHINE POWER SCOOTER * List name and contact numbers for known caregivers / representatives who currently or will assist patient after discharge: [facility] [place], MEDICAL EQUIOPMENT PROVIDER * Verbal permission to speak to the caregivers and representatives has been obtained from the patient. N/A * Community resources currently utilized Home Health * Please name any agencies selected above. [facility] * Additional services required to return to the preadmission environment? Yes * Can the patient safely return to the preadmission environment? Yes * Has this patient been hospitalized within the prior 30 days at any hospital? Yes Coverage Notice Reviewer: [id number] - Navin Geronimo Notice Issued Date-Time: 08/20/2018 17:00 Notice Type: Patient Choice Letter Notice Delivered To: Patient Relationship to Patient: Paper Carrier Name: Delivery Method: HAND - Hand Delivered Hannah Days: Prior Verbal Notification: Recipient Understood Notice: Yes Recipient Signature: Yes Med Rec Note Co-signed by Attending: Coverage Notice Comment: NO SNF PREFERNCE IF DECLINED FOR INPT REHAB Reviewer: SAVANAH Geronimo Notice Issued Date-Time: 08/20/2018 17:00 Notice Type: IM Discharge Notice Notice Delivered To: Patient Relationship to Patient: Paper Carrier Name: Delivery Method: HAND - Hand Delivered Hannah Days: Prior Verbal Notification: Recipient Understood Notice: Yes Recipient Signature: Yes Med Rec Note Co-signed by Attending: Coverage Notice Comment: Reviewer: SAVANAH Geronimo Notice Issued Date-Time: 08/25/2018 13:50 Notice Type: IM Discharge Notice Notice Delivered To: Patient Relationship to Patient: Paper Carrier Name: Delivery Method: HAND - Hand Delivered Hannah Days: Prior Verbal Notification: Recipient Understood Notice: Yes Recipient Signature: Yes Med Rec Note Co-signed by Attending: Coverage Notice Comment: Reviewer: SAVANAH Geronimo Notice Issued Date-Time: 08/25/2018 13:50 Notice Type: Patient Choice Letter Notice Delivered To: Patient Relationship to Patient: Paper Carrier Name: Delivery Method: HAND - Hand Delivered Hannah Days: Prior Verbal Notification: Recipient Understood Notice: Yes Recipient Signature: Yes Med Rec Note Co-signed by Attending: Coverage Notice Comment: JUANJOSE OR [facility]ITE Last DP export: 08/24/18 5:17 p Patient Name: SERVANDO HAYES Page [id number] at 1625 All edits/amendments must be made on the electronic document DICTATION DATE: 08/25/18 1624 APARTMENT COMMUNITY ASSISTANT MANAGER: TRISTAN 08/25/18 1624 RPT#: [id number] PA DATE: STATUS: ADM IN [facility] [address] [place] [address] END OF REPORT
--- NOTE | ~2018-08-16 | MORECARE ---
CASE MANAGEMENT DISCHARGE SUMMARY PATIENT: SERVANDO HAYES UNIT: [id number] ADM DATE: 08/16/18 AGE: 63 : 59 SEX: M ROOM/BED: D.2140 AUTHOR: MELODY,DOC PHYSICIAN: REFERRING PHYSICIAN: SHILPI RUSS MD DATE OF SERVICE: 08/23/18 Discharge Plan Patient Name: SERVANDO HAYES [facility] [facility] 1955 Planned Disposition: Retirement Facility Anticipated Discharge Date: 08/24/18 Discharge Date: Expected LOS: 8 Initial Reviewer: [id number] Initial Review Date: 08/20/2018 Generated: 08/23/18 3:05 pm Comments DCP- Discharge Planning Updated by [id number]: Ruma Pascal on 08/22/18 6:[address] CM SPOKE WITH ANITA MARKETING COMMUNICATIONS ASSOCIATE FOR [facility] REHAB SCREENER. PATIENT REQUIRES PREAUTH FROM HIS MANAGED MEDICARE PROVIDER. UPADTE WILL BE PROVIDED AND REHAB WILL FOLLOW UP ON THURSDAY. AWAITING AUTH FOR IP REHAB. DCP- Discharge Planning Updated by [id number]: Navin Geronimo on 08/20/18 5:[address] Patient Name: SERVANDO HAYES Admission Status: ER Accout number: [id number] Admission Date: 08-16-2018 : 1955 Admission Diagnosis:SHORTNESS OF BREATH Attending: SHILPI RUSS Current LOS: 4 Anticipated DC Date: 08-23-2018 Planned Disposition: Inpatient Rehab Primary Insurance: [facility] MEDICARE [employer] PLANNED EXTERNAL PROVIDER: PLANNED EXTERNAL PROVIDER: [facility] INPATIENT REHAB Discharge Planning Comments: CM RECEIVED INPATIENT REHAB PRESCREENING ORDER, MET WITH PT IN ROOM TO DISCUSS DISCHARGE PLANNING AND NEEDS. PT REPORTS LIVING AT HOME DEPENDENTLY WITH HER ADULT DAUGHTER. PT REPORTS HAVING TRILOGY, HOME OXYGEN, NEBLUIZER AND WALKER WELL A SCOOTER; MEDICAL EQUIPMENT FROM [facility] IN [place]. PT HAS HOME HEALTH WITH [facility] AT HOME. CM DISCUSSED AVAILABILITY OF HOME HEALTH, REHAB SERVICES AND MEDICAL EQUIPMENT. PT IS AGREEABLE TO REHAB AT [place] WITH PLAN TO DISCHARGE HOME FROM HOSPITAL REHAB; PT REPORTS HIS DAUGHTER WILL PICK HER UP FOR DISCHARGE HOME. PT WOULD LIKE TO TRY INPATIENT REHAB FIRST BUT DOES NOT KNOW IF INSURANCE WILL APPROVE IT HE WAS IN POST ACUTE CARE IN [place] TWO WEEKS AGO. PT STATES THAT IF INSURANCE WILL NOT PAY FOR INPATIENT REHAB AT [place], HE WILL CONSENT TO PENITENTIARY REHAB WITH NO PROVIDER PREFERNECE, CHOICE SIGNED FOR SNF WITH NO PROVIDER PREFERENCE. IMPORTANT MESSAGE FROM MEDICARE PROVIDED AND EXPLAINED. CM WAITING COMPLETION OF INPATIENT REHAB PRESCREENING AND ADMISSION DETERMINATION FROM [facility] INPATIENT REHAB. NAVIN GERONIMO, CASE MANAGEMENT DCP- Discharge Planning Updated by [id number]: Sulma Wang on 08/19/18 10:[address] I RECEIVED A CALL FROM MARILYNN LAKHANI RN CASE MANAGER WITH CHRONIC DISEASE DIVISION OF [facility] ([phone] EXT. [phone]). SHE ASKED FOR AN UPDATE ON THE PATIENTS STATUS AND DISCHARGE PLANS. SHE EXPLAINED THAT HE HAS BEEN A FREQUENT FLYER FOR HOSPITAL ADMISSIONS, AND HAD BEEN UNSAFE TO LIVE AT HOME ALONE. SHE STATED THAT HE MOVED IN WITH HIS DAUGHTER, WHO WORKS AND HAS A CHILD, AND SHE WAS UNSURE IF HE WOULD BE SAFE TO RETURN HOME. I EXPLAINED THAT WE RECEIVED AN ORDER FOR REHAB PRESCREEN ON THE PATIENT, AND THEREFORE WE WOULD BE WORKING ON REHAB. I READ HIS PHYSICAL THERAPY EVAL AND NOTES TO HER. WE DON'T BELIEVE THAT IPR WILL BE GOOD FOR THE PATIENT, AND THAT SNF MAY BE THE MOST APPROPRIATE. SHE HAS REQUESTED THAT SHE BE CALLED IF SHE COULD BE OF ASSISTANCE IN ANY WAY WITH DISCHARGE. DCPIA - Discharge Planning Initial Assessment Updated by [id number]: Navin Geronimo on 08/20/18 6:01 pm * Is the patient Alert and Oriented? Yes * How many steps to enter\exit or inside your home? RAMP * PCP DR. KOBE FERREIRA IN [place] * Pharmacy [facility] * Preadmission Environment Home with Family * ADLs Partial Dependent * Partial ADLs (Assistance needed) Ambulation * Equipment Nebulizer Other Oxygen Walker * Other Equipment HOME AND PORTABLE OXYGEN TRILOGY MACHINE POWER SCOOTER * List name and contact numbers for known caregivers / representatives who currently or will assist patient after discharge: [facility] [place], MEDICAL EQUIOPMENT PROVIDER * Verbal permission to speak to the caregivers and representatives has been obtained from the patient. N/A * Community resources currently utilized Home Health * Please name any agencies selected above. [facility] * Additional services required to return to the preadmission environment? Yes * Can the patient safely return to the preadmission environment? Yes * Has this patient been hospitalized within the prior 30 days at any hospital? Yes External Providers External Provider: [facility] Next Contact Date: 08/23/2018 Service Request Date: Service Type: Resolution: Reviewer: Comments: Coverage Notice Reviewer: [id number] Geronimo Notice Issued Date-Time: 08/20/2018 17:00 Notice Type: Patient Choice Letter Notice Delivered To: Patient Relationship to Patient: Divorce Mediator Name: Delivery Method: HAND - Hand Delivered Hannah Days: Prior Verbal Notification: Recipient Understood Notice: Yes Recipient Signature: Yes Med Rec Note Co-signed by Attending: Coverage Notice Comment: NO SNF PREFERNCE IF DECLINED FOR INPT REHAB Reviewer: [id number] Baldomero Geronimo Notice Issued Date-Time: 08/20/2018 17:00 Notice Type: IM Discharge Notice Notice Delivered To: Patient Relationship to Patient: Divorce Mediator Name: Delivery Method: HAND - Hand Delivered Hannah Days: Prior Verbal Notification: Recipient Understood Notice: Yes Recipient Signature: Yes Med Rec Note Co-signed by Attending: Coverage Notice Comment: Last DP export: 08/23/18 12:51 p Patient Name: SERVANDO HAYES Page 99522 at 1405 All edits/amendments must be made on the electronic document DICTATION DATE: 08/23/18 140 SERVICE TRAINER: TRISTAN 08/23/18 1404 RPT#: [id number] DC DATE: STATUS: ADM IN [facility] [address] [place] [address] END OF REPORT
--- NOTE | ~2018-08-16 | MORECARE ---
CASE MANAGEMENT DISCHARGE SUMMARY PATIENT: SERVANDO HAYES UNIT: [id number] ADM DATE: 08/16/18 AGE: 63 : 59 SEX: M ROOM/BED: D.2140 AUTHOR: MELODY,DOC PHYSICIAN: REFERRING PHYSICIAN: SHILPI RUSS MD DATE OF SERVICE: 08/23/18 Discharge Plan Patient Name: SERVANDO HAYES [facility] [facility] 1955 Planned Disposition: [facility] Anticipated Discharge Date: 08/24/18 Discharge Date: Expected LOS: 8 Initial Reviewer: [id number] Initial Review Date: 08/20/2018 Generated: 08/23/18 2:51 pm Comments DCP- Discharge Planning Updated by [id number]: Ruma Pascal on 08/22/18 6:[address] CM SPOKE WITH ANITA LEAD NET SOFTWARE DEVELOPER FOR [facility] REHAB SCREENER. PATIENT REQUIRES PREAUTH FROM HIS MANAGED MEDICARE PROVIDER. UPADTE WILL BE PROVIDED AND REHAB WILL FOLLOW UP ON THURSDAY. AWAITING AUTH FOR IP REHAB. DCP- Discharge Planning Updated by [id number]: Navin Geronimo on 08/20/18 5:[address] Patient Name: SERVANDO HAYES Admission Status: ER Accout number: [id number] Admission Date: 08-16-2018 : 1955 Admission Diagnosis:SHORTNESS OF BREATH Attending: SHILPI RUSS Current LOS: 4 Anticipated DC Date: 08-23-2018 Planned Disposition: Inpatient Rehab Primary Insurance: [facility] MEDICARE [employer] PLANNED EXTERNAL PROVIDER: PLANNED EXTERNAL PROVIDER: [facility] INPATIENT REHAB Discharge Planning Comments: CM RECEIVED INPATIENT REHAB PRESCREENING ORDER, MET WITH PT IN ROOM TO DISCUSS DISCHARGE PLANNING AND NEEDS. PT REPORTS LIVING AT HOME DEPENDENTLY WITH HER ADULT DAUGHTER. PT REPORTS HAVING TRILOGY, HOME OXYGEN, NEBLUIZER AND WALKER WELL A SCOOTER; MEDICAL EQUIPMENT FROM [facility] IN [place]. PT HAS HOME HEALTH WITH [facility] AT HOME. CM DISCUSSED AVAILABILITY OF HOME HEALTH, REHAB SERVICES AND MEDICAL EQUIPMENT. PT IS AGREEABLE TO REHAB AT [place] WITH PLAN TO DISCHARGE HOME FROM HOSPITAL REHAB; PT REPORTS HIS DAUGHTER WILL PICK HER UP FOR DISCHARGE HOME. PT WOULD LIKE TO TRY INPATIENT REHAB FIRST BUT DOES NOT KNOW IF INSURANCE WILL APPROVE IT HE WAS IN POST ACUTE CARE IN [place] TWO WEEKS AGO. PT STATES THAT IF INSURANCE WILL NOT PAY FOR INPATIENT REHAB AT [place], HE WILL CONSENT TO GROUP HOME REHAB WITH NO PROVIDER PREFERNECE, CHOICE SIGNED FOR SNF WITH NO PROVIDER PREFERENCE. IMPORTANT MESSAGE FROM MEDICARE PROVIDED AND EXPLAINED. CM WAITING COMPLETION OF INPATIENT REHAB PRESCREENING AND ADMISSION DETERMINATION FROM [facility] INPATIENT REHAB. NAVIN GERONIMO, CASE MANAGEMENT DCP- Discharge Planning Updated by [id number]: Sulma Wang on 08/19/18 10:[address] I RECEIVED A CALL FROM MARILYNN LAKHANI RN CASE MANAGER WITH CHRONIC DISEASE DIVISION OF [facility] ([phone] EXT. [phone]). SHE ASKED FOR AN UPDATE ON THE PATIENTS STATUS AND DISCHARGE PLANS. SHE EXPLAINED THAT HE HAS BEEN A FREQUENT FLYER FOR HOSPITAL ADMISSIONS, AND HAD BEEN UNSAFE TO LIVE AT HOME ALONE. SHE STATED THAT HE MOVED IN WITH HIS DAUGHTER, WHO WORKS AND HAS A CHILD, AND SHE WAS UNSURE IF HE WOULD BE SAFE TO RETURN HOME. I EXPLAINED THAT WE RECEIVED AN ORDER FOR REHAB PRESCREEN ON THE PATIENT, AND THEREFORE WE WOULD BE WORKING ON REHAB. I READ HIS PHYSICAL THERAPY EVAL AND NOTES TO HER. WE DON'T BELIEVE THAT IPR WILL BE GOOD FOR THE PATIENT, AND THAT SNF MAY BE THE MOST APPROPRIATE. SHE HAS REQUESTED THAT SHE BE CALLED IF SHE COULD BE OF ASSISTANCE IN ANY WAY WITH DISCHARGE. DCPIA - Discharge Planning Initial Assessment Updated by [id number]: Navin Geronimo on 08/20/18 6:01 pm * Is the patient Alert and Oriented? Yes * How many steps to enter\exit or inside your home? RAMP * PCP DR. KOBE FERREIRA IN [place] * Pharmacy [facility] * Preadmission Environment Home with Family * ADLs Partial Dependent * Partial ADLs (Assistance needed) Ambulation * Equipment Nebulizer Other Oxygen Walker * Other Equipment HOME AND PORTABLE OXYGEN TRILOGY MACHINE POWER SCOOTER * List name and contact numbers for known caregivers / representatives who currently or will assist patient after discharge: [facility] [place], MEDICAL EQUIOPMENT PROVIDER * Verbal permission to speak to the caregivers and representatives has been obtained from the patient. N/A * Community resources currently utilized Home Health * Please name any agencies selected above. [facility] * Additional services required to return to the preadmission environment? Yes * Can the patient safely return to the preadmission environment? Yes * Has this patient been hospitalized within the prior 30 days at any hospital? Yes Coverage Notice Reviewer: [id number] Baldomero Geronimo Notice Issued Date-Time: 08/20/2018 17:00 Notice Type: Patient Choice Letter Notice Delivered To: Patient Relationship to Patient: Counter Molder Name: Delivery Method: HAND - Hand Delivered Hannah Days: Prior Verbal Notification: Recipient Understood Notice: Yes Recipient Signature: Yes Med Rec Note Co-signed by Attending: Coverage Notice Comment: NO SNF PREFERNCE IF DECLINED FOR INPT REHAB Reviewer: [id number] Baldomero Geronimo Notice Issued Date-Time: 08/20/2018 17:00 Notice Type: IM Discharge Notice Notice Delivered To: Patient Relationship to Patient: Counter Molder Name: Delivery Method: HAND - Hand Delivered Hannah Days: Prior Verbal Notification: Recipient Understood Notice: Yes Recipient Signature: Yes Med Rec Note Co-signed by Attending: Coverage Notice Comment: Last DP export: 08/22/18 6:19 p Patient Name: SERVANDO HAYES Page [id number] at 1351 All edits/amendments must be made on the electronic document DICTATION DATE: 08/23/18 1351 CUSTOMER SERVICE ADVOCATE: TRISTAN 08/23/18 1351 RPT#: [id number] DC DATE: STATUS: ADM IN [facility] [address] [place] [address] END OF REPORT
--- NOTE | ~2018-08-16 | MORECARE ---
CASE MANAGEMENT DISCHARGE SUMMARY PATIENT: SERVANDO HAYES UNIT: [id number] ADM DATE: 08/16/18 AGE: 63 : 59 SEX: M ROOM/BED: D.2140 AUTHOR: MELODY,DOC PHYSICIAN: REFERRING PHYSICIAN: SHILPI RUSS MD DATE OF SERVICE: 08/22/18 Discharge Plan Patient Name: SERVANDO HAYES [facility] [facility] 1955 Planned Disposition: Inpatient Rehab Anticipated Discharge Date: 08/23/18 Discharge Date: Expected LOS: 7 Initial Reviewer: [id number] Initial Review Date: 08/20/2018 Generated: 08/22/18 8:19 pm Comments DCP- Discharge Planning Updated by [id number]: Ruma Pascal on 08/22/18 6:[address] CM SPOKE WITH ANITA ENGINE LATHE TENDER FOR [facility] REHAB SCREENER. PATIENT REQUIRES PREAUTH FROM HIS MANAGED MEDICARE PROVIDER. UPADTE WILL BE PROVIDED AND REHAB WILL FOLLOW UP ON THURSDAY. AWAITING AUTH FOR IP REHAB. DCP- Discharge Planning Updated by [id number]: Navin Geronimo on 08/20/18 5:[address] Patient Name: SERVANDO HAYES Admission Status: ER Accout number: [id number] Admission Date: 08-16-2018 : 1955 Admission Diagnosis:SHORTNESS OF BREATH Attending: SHILPI RUSS Current LOS: 4 Anticipated DC Date: 08-23-2018 Planned Disposition: Inpatient Rehab Primary Insurance: [facility] MEDICARE [employer] PLANNED EXTERNAL PROVIDER: PLANNED EXTERNAL PROVIDER: [facility] INPATIENT REHAB Discharge Planning Comments: CM RECEIVED INPATIENT REHAB PRESCREENING ORDER, MET WITH PT IN ROOM TO DISCUSS DISCHARGE PLANNING AND NEEDS. PT REPORTS LIVING AT HOME DEPENDENTLY WITH HER ADULT DAUGHTER. PT REPORTS HAVING TRILOGY, HOME OXYGEN, NEBLUIZER AND WALKER WELL A SCOOTER; MEDICAL EQUIPMENT FROM [facility] IN [place]. PT HAS HOME HEALTH WITH [facility] AT HOME. CM DISCUSSED AVAILABILITY OF HOME HEALTH, REHAB SERVICES AND MEDICAL EQUIPMENT. PT IS AGREEABLE TO REHAB AT [facility] WITH PLAN TO DISCHARGE HOME FROM HOSPITAL REHAB; PT REPORTS HIS DAUGHTER WILL PICK HER UP FOR DISCHARGE HOME. PT WOULD LIKE TO TRY INPATIENT REHAB FIRST BUT DOES NOT KNOW IF INSURANCE WILL APPROVE IT HE WAS IN POST ACUTE CARE IN [place] TWO WEEKS AGO. PT STATES THAT IF INSURANCE WILL NOT PAY FOR INPATIENT REHAB AT [facility], HE WILL CONSENT TO ASSISTED REHAB WITH NO PROVIDER PREFERNECE, CHOICE SIGNED FOR SNF WITH NO PROVIDER PREFERENCE. IMPORTANT MESSAGE FROM MEDICARE PROVIDED AND EXPLAINED. CM WAITING COMPLETION OF INPATIENT REHAB PRESCREENING AND ADMISSION DETERMINATION FROM [facility] INPATIENT REH[facility]. NAVIN GERONIMO, CASE MANAGEMENT DCP- Discharge Planning Updated by [id number]: Sulma Wang on 08/19/18 10:[address] I RECEIVED A CALL FROM MARLIYNN LAKHANI RN CASE MANAGER WITH CHRONIC DISEASE DIVISION OF [facility] ([phone] EXT. [phone]). SHE ASKED FOR AN UPDATE ON THE PATIENTS STATUS AND DISCHARGE PLANS. SHE EXPLAINED THAT HE HAS BEEN A FREQUENT FLYER FOR HOSPITAL ADMISSIONS, AND HAD BEEN UNSAFE TO LIVE AT HOME ALONE. SHE STATED THAT HE MOVED IN WITH HIS DAUGHTER, WHO WORKS AND HAS A CHILD, AND SHE WAS UNSURE IF HE WOULD BE SAFE TO RETURN HOME. I EXPLAINED THAT WE RECEIVED AN ORDER FOR REHAB PRESCREEN ON THE PATIENT, AND THEREFORE WE WOULD BE WORKING ON REHAB. I READ HIS PHYSICAL THERAPY EVAL AND NOTES TO HER. WE DON'T BELIEVE THAT IPR WILL BE GOOD FOR THE PATIENT, AND THAT SNF MAY BE THE MOST APPROPRIATE. SHE HAS REQUESTED THAT SHE BE CALLED IF SHE COULD BE OF ASSISTANCE IN ANY WAY WITH DISCHARGE. DCPIA - Discharge Planning Initial Assessment Updated by [id number]: Navin Geronimo on 08/20/18 6:01 pm * Is the patient Alert and Oriented? Yes * How many steps to enter\exit or inside your home? RAMP * PCP DR. KOBE FERREIRA IN [place] * Pharmacy [facility] * Preadmission Environment Home with Family * ADLs Partial Dependent * Partial ADLs (Assistance needed) Ambulation * Equipment Nebulizer Other Oxygen Walker * Other Equipment HOME AND PORTABLE OXYGEN TRILOGY MACHINE POWER SCOOTER * List name and contact numbers for known caregivers / representatives who currently or will assist patient after discharge: LAUREN [facility] IN [place], MEDICAL EQUIOPMENT PROVIDER * Verbal permission to speak to the caregivers and representatives has been obtained from the patient. N/A * Community resources currently utilized Home Health * Please name any agencies selected above. [facility] * Additional services required to return to the preadmission environment? Yes * Can the patient safely return to the preadmission environment? Yes * Has this patient been hospitalized within the prior 30 days at any hospital? Yes Coverage Notice Reviewer: [id number] Baldomero Geronimo Notice Issued Date-Time: 08/20/2018 17:00 Notice Type: Patient Choice Letter Notice Delivered To: Patient Relationship to Patient: Food Service Driver Name: Delivery Method: HAND - Hand Delivered Hannah Days: Prior Verbal Notification: Recipient Understood Notice: Yes Recipient Signature: Yes Med Rec Note Co-signed by Attending: Coverage Notice Comment: NO SNF PREFERNCE IF DECLINED FOR INPT REHAB Reviewer: [id number] Baldomero Geronimo Notice Issued Date-Time: 08/20/2018 17:00 Notice Type: IM Discharge Notice Notice Delivered To: Patient Relationship to Patient: Food Service Driver Name: Delivery Method: HAND - Hand Delivered Hannah Days: Prior Verbal Notification: Recipient Understood Notice: Yes Recipient Signature: Yes Med Rec Note Co-signed by Attending: Coverage Notice Comment: Last DP export: 08/20/18 5:09 Patient Name: SERVANDO HAYES Page 64274 at 191 All edits/amendments must be made on the electronic document DICTATION DATE: 08/22/181918 HOME VISITS NURSE: TRISTAN 08/22/181918 RPT#: [id number] DC DATE: STATUS: ADM IN [facility] [address] [place] [address] END OF REPORT
--- NOTE | ~2018-08-16 | MORECARE ---
CASE MANAGEMENT DISCHARGE SUMMARY PATIENT: SERVANDO HAYES UNIT: [id number] ADM DATE: 08/16/18 AGE: 63 : 59 SEX: M ROOM/BED: D.2140 AUTHOR: MELODY,DOC PHYSICIAN: REFERRING PHYSICIAN: SHILPI RUSS MD DATE OF SERVICE: 08/25/18 Discharge Plan Patient Name: SERVANDO HAYES Facility[facility]:[place] : 1955 Planned Disposition: Home with Home Health Anticipated Discharge Date: 08/25/18 Discharge Date: Expected LOS: 9 Initial Reviewer: [id number] Initial Review Date: 08/20/2018 Generated: 08/25/18 5:46 pm Comments DCP- Discharge Planning Updated by [email or web address]: Magdalena Geronimo on 08/25/18 3:[address] Patient Name: SERVANDO HAYES Encounter No: [id number] : 1955 Primary Insurance: [facility] MEDICARE SOLUTIONS Anticipated DC Date: 08-25-2018 Planned Disposition: Home with Home Health External Planned Provider: [facility] DCP follow-up note: CM RECEIVED CALL FROM MARILYNN ROMERO, [facility] MEDICARE NURSE INTERNATIONAL TRAVEL CONSULTANT, WHO REPORTS THAT SHE WAS INFORMED THAT PT CANNOT AFFORD COPAY FOR REHAB AND SHE DOES NOT FEEL THAT DISCHARGE TO HOME IS A SAFE DISCHARGE PLAN FOR PT. CM WILL SPEAK TO PT AND DETERMINE PT'S PLAN. CM SPOKE TO PT THIS MORNING, PT REPORTS HE IS NOT WILLING TO PAY $150 DAILY COPAY FOR REHAB SERVICES. CM DISCUSSED DETENTION CARE PLACEMENT IN [place]. PT REPORTS HE IS NOT WILLING FOR PLACEMENT AND DOES NOT WANT TO LOSE HIS CHECK. PT REPORTS PLAN TO RETURN HOME WITH HOME HEALTH. PT STATES HIS HOME IS SAFE AND THAT HIS DAUGHTER WILL BE AT HOME WITH HIM AT ALL TIMES. CM DISCUSSED PT'S THERAPY NOTES AND WEAKNESS. PT STATES THAT HE WILL BE ABLE TO TAKE CARE OF HIMSELF WITH ASSISTANCE OF DAUGHTER. CM INFORMED PT THAT HIS ORACLE ANALYST INFORMED CM THAT SHE DOES NOT FEEL PT IS SAFE TO DISCHARGE BACK TO HIS PREVIOUS ENVIRONMENT AT HOME. PT STATES THAT HE IS SAFE AT HOME, FAMILY WILL BE THERE AND NO ONE CAN MAKE HIM GO TO THE [place]. CM NOTIFIED JAMILA SCHWARTZ AND RECEIVED DISCHARGE ORDERS. KIRILL CALLED MARILYNN AT [facility], , X [phone], NOTIFIED OF ABOVE. CM CALLED [facility], , WITH ALLEGATIONS OF PT'S UNSAFE LIVING CONDITION NOT HAVING ADEQUATE CAREGIVERS AT HOME. CASE # [id number]. CM CALLED AND SPOKE TO KETTY AT [facility], WHO ADVISED THEY WILL NOT ACCEPT PT BACK DUE TO UNSAFE LIVING CONDITIONS FOR PT. CM ADVISED PT. PT ASKED FOR EITHER [facility] OR [facility], CHOICE SIGNED. PT DENIES FURTHER DISCHARGE NEEDS, HE REPORTS FAMILY WILL PICK HIM UP FOR DISCHARGE HOME. CM CALLED [facility], , SPOKE TO MARCOS, ADVISED OF ABOVE, MARCOS REPORTS THEY WILL ATTEMPT TO ADMIT PT ON THURSDAY. CM FAXED HOME HEALTH REFERRAL TO [facility] AT [phone]. BEDSIDE NURSE NOTIFIED. Magdalena Geronimo, CASE MANAGEMENT DCP- Discharge Planning Updated by [id number]: Magdalena Geronimo on 08/24/18 5:[address] Patient Name: SERVANDO HAYES Encounter No: [id number] : 1955 Primary Insurance: [facility] MEDICARE SOLUTIONS Anticipated DC Date: 08-24-2018 Planned Disposition: Intermediate Facility External Planned Provider: [facility], MEDICARE REHAB BED Discharge Planning Comments: CM SPOKE TO MANUEL OF [facility] WHO REPORTS NEEDING PT'S TRILOGY MACHINE SETTINGS WELL PROJECTED DISCHARGE DATE TO PROVIDE TO INSURANCE FOR REHAB CONSIDERATION. CM TO ATTEMPT TO ACQUIRE TRILOGY MACHINE SETTINGS SOON POSSIBLE AND PROVIDE TO [facility]. CM WAITING ADMISSION DETERMINATION AND INSURANCE APPROVAL FOR REHAB AT [facility]. Birth Certificate Clerk: Magdalena Geronimo DCP- Discharge Planning Updated by [id number]: Magdalena Geronimo on 08/23/18 1:[address] Patient Name: SERVANDO HAYES Admission Status: ER Accout number: [id number] Admission Date: 08-16-2018 : 1955 Admission Diagnosis:SHORTNESS OF BREATH Attending: SHILPI RUSS Current LOS: 7 Anticipated DC Date: 08-24-2018 Planned Disposition: Intermediate Facility Primary Insurance: [facility] MEDICARE SOLUTIONS PLANNED EXTERNAL PROVIDER: [facility], MEDICARE REHAB BED Discharge Planning Comments: CM RECEIVED CALL FROM ANNEMARIE OF INPATIENT REHAB, PT'S INSURANCE HAS DECLINED REHAB INPATIENT AND SUGGESTED PT'S NEEDS CAN BE MET AT [facility]. CM MET WITH PT IN ROOM, DISCUSSED INSURANCE DECLINATION OF INPATIENT REHAB, PT REPORTS HE WANTS REHAB IN [facility] CLOSE TO HIS FAMILY IN [place] POSSIBLE. CM DISCUSSED [facility], PT IS AGREEABLE AND HAS PREVIOUSLY SIGNED CHOICE FORM. CM SPOKE TO MANUEL OF [facility] WHO MET WITH PT IN ROOM, CM FAXED REFERRAL TO [facility] AT [phone]; CM WAITING ADMISSION DETERMINATION AND INSURANCE APPROVAL FOR REHAB AT [facility]. Birth Certificate Clerk: Magdalena Geronimo DCP- Discharge Planning Updated by [id number]: Rumaeufemia Pascal on 08/22/18 6:[address] CM SPOKE WITH ANITA SETTLEMENT PROCESSOR FOR [facility] REHAB SCREENER. PATIENT REQUIRES PREAUTH FROM HIS MANAGED MEDICARE PROVIDER. UPADTE WILL BE PROVIDED AND REHAB WILL FOLLOW UP ON THURSDAY. AWAITING AUTH FOR IP REHAB. DCP- Discharge Planning Updated by [id number]: Magdalena Geronimo on 08/20/18 5:[address] Patient Name: SERVANDO HAYES Admission Status: ER Accout number: [id number] Admission Date: 08-16-2018 : 1955 Admission Diagnosis:SHORTNESS OF BREATH Attending: SHILPI RUSS Current LOS: 4 Anticipated DC Date: 08-23-2018 Planned Disposition: Inpatient Rehab Primary Insurance: [facility] MEDICARE SOLUTIONS PLANNED EXTERNAL PROVIDER: PLANNED EXTERNAL PROVIDER: [facility] INPATIENT REHAB Discharge Planning Comments: CM RECEIVED INPATIENT REHAB PRESCREENING ORDER, MET WITH PT IN ROOM TO DISCUSS DISCHARGE PLANNING AND NEEDS. PT REPORTS LIVING AT HOME DEPENDENTLY WITH HER ADULT DAUGHTER. PT REPORTS HAVING TRILOGY, HOME OXYGEN, NEBLUIZER AND WALKER WELL A SCOOTER; MEDICAL EQUIPMENT FROM [employer] IN [place]. PT HAS HOME HEALTH WITH [facility] AT HOME. CM DISCUSSED AVAILABILITY OF HOME HEALTH, REHAB SERVICES AND MEDICAL EQUIPMENT. PT IS AGREEABLE TO REHAB AT [facility] WITH PLAN TO DISCHARGE HOME FROM HOSPITAL REHAB; PT REPORTS HIS DAUGHTER WILL PICK HER UP FOR DISCHARGE HOME. PT WOULD LIKE TO TRY INPATIENT REHAB FIRST BUT DOES NOT KNOW IF INSURANCE WILL APPROVE IT HE WAS IN POST ACUTE CARE IN [place] TWO WEEKS AGO. PT STATES THAT IF INSURANCE WILL NOT PAY FOR INPATIENT REHAB AT [facility], HE WILL CONSENT TO [facility] REHAB WITH NO PROVIDER PREFERNECE, CHOICE SIGNED FOR SNF WITH NO PROVIDER PREFERENCE. IMPORTANT MESSAGE FROM MEDICARE PROVIDED AND EXPLAINED. CM WAITING COMPLETION OF INPATIENT REHAB PRESCREENING AND ADMISSION DETERMINATION FROM [facility] INPATIENT REHAB. MAGDALENA GERONIMO, CASE MANAGEMENT DCP- Discharge Planning Updated by [id number]: Sulma Wang on 08/19/18 10:[address] I RECEIVED A CALL FROM MARILYNN LAKHANI RN CASE MANAGER WITH CHRONIC DISEASE DIVISION OF [facility] ([phone] EXT. [phone]). SHE ASKED FOR AN UPDATE ON THE PATIENTS STATUS AND DISCHARGE PLANS. SHE EXPLAINED THAT HE HAS BEEN A FREQUENT FLYER FOR HOSPITAL ADMISSIONS, AND HAD BEEN UNSAFE TO LIVE AT HOME ALONE. SHE STATED THAT HE MOVED IN WITH HIS DAUGHTER, WHO WORKS AND HAS A CHILD, AND SHE WAS UNSURE IF HE WOULD BE SAFE TO RETURN HOME. I EXPLAINED THAT WE RECEIVED AN ORDER FOR REHAB PRESCREEN ON THE PATIENT, AND THEREFORE WE WOULD BE WORKING ON REHAB. I READ HIS PHYSICAL THERAPY EVAL AND NOTES TO HER. WE DON'T BELIEVE THAT IPR WILL BE GOOD FOR THE PATIENT, AND THAT SNF MAY BE THE MOST APPROPRIATE. SHE HAS REQUESTED THAT SHE BE CALLED IF SHE COULD BE OF ASSISTANCE IN ANY WAY WITH DISCHARGE. DCPIA - Discharge Planning Initial Assessment Updated by [id number]: Magdalena Geronimo on 08/20/18 6:01 pm * Is the patient Alert and Oriented? Yes * How many steps to enter\exit or inside your home? RAMP * PCP DR. KOBE FERREIRA IN [place] * Pharmacy [facility] * Preadmission Environment Home with Family * ADLs Partial Dependent * Partial ADLs (Assistance needed) Ambulation * Equipment Nebulizer Other Oxygen Walker * Other Equipment HOME AND PORTABLE OXYGEN TRILOGY MACHINE POWER SCOOTER * List name and contact numbers for known caregivers / representatives who currently or will assist patient after discharge: LAUREN [facility] IN [place], MEDICAL EQUIOPMENT PROVIDER * Verbal permission to speak to the caregivers and representatives has been obtained from the patient. N/A * Community resources currently utilized Home Health * Please name any agencies selected above. [facility] * Additional services required to return to the preadmission environment? Yes * Can the patient safely return to the preadmission environment? Yes * Has this patient been hospitalized within the prior 30 days at any hospital? Yes Coverage Notice Reviewer: SAVANAH Geronimo Notice Issued Date-Time: 08/20/2018 17:00 Notice Type: Patient Choice Letter Notice Delivered To: Patient Relationship to Patient: Shellfish Weigher Name: Delivery Method: HAND - Hand Delivered Hannah Days: Prior Verbal Notification: Recipient Understood Notice: Yes Recipient Signature: Yes Med Rec Note Co-signed by Attending: Coverage Notice Comment: NO SNF PREFERNCE IF DECLINED FOR INPT REHAB Reviewer: SAAVNAH Geronimo Notice Issued Date-Time: 08/20/2018 17:00 Notice Type: IM Discharge Notice Notice Delivered To: Patient Relationship to Patient: Shellfish Weigher Name: Delivery Method: HAND - Hand Delivered Hannah Days: Prior Verbal Notification: Recipient Understood Notice: Yes Recipient Signature: Yes Med Rec Note Co-signed by Attending: Coverage Notice Comment: Reviewer: SAVANAH Geronimo Notice Issued Date-Time: 08/25/2018 13:50 Notice Type: IM Discharge Notice Notice Delivered To: Patient Relationship to Patient: Shellfish Weigher Name: Delivery Method: HAND - Hand Delivered Hannah Days: Prior Verbal Notification: Recipient Understood Notice: Yes Recipient Signature: Yes Med Rec Note Co-signed by Attending: Coverage Notice Comment: Reviewer: SAVANAH Geronimo Notice Issued Date-Time: 08/25/2018 13:50 Notice Type: Patient Choice Letter Notice Delivered To: Patient Relationship to Patient: Shellfish Weigher Name: Delivery Method: HAND - Hand Delivered Hannah Days: Prior Verbal Notification: Recipient Understood Notice: Yes Recipient Signature: Yes Med Rec Note Co-signed by Attending: Coverage Notice Comment: [facility] Last DP export: 08/25/18 3:25 p Patient Name: SERVANDO HAYES Page [id number] at 1646 All edits/amendments must be made on the electronic document DICTATION DATE: 08/25/181644 BEE BREEDER: TRISTAN 08/25/181644 RPT#: [id number] DC DATE: STATUS: ADM IN [facility] [address] [place] [address] END OF REPORT
--- NOTE | ~2018-08-16 | MORECARE ---
CASE MANAGEMENT DISCHARGE SUMMARY PATIENT: SERVANDO HAYES UNIT: [id number] ADM DATE: 08/16/18 AGE: 63 : 59 SEX: M ROOM/BED: D.2140 AUTHOR: MELODY,DOC PHYSICIAN: REFERRING PHYSICIAN: SHILPI RUSS MD DATE OF SERVICE: 08/23/18 Discharge Plan Patient Name: SERVANDO HAYES Facility: [facility]:[place] : 1955 Planned Disposition: Fdc Facility Anticipated Discharge Date: 08/24/18 Discharge Date: Expected LOS: 8 Initial Reviewer: [id number] Initial Review Date: 08/20/2018 Generated: 08/23/18 3:14 pm Comments DCP- Discharge Planning Updated by [id number]: Navin Geronimo on 08/23/18 1:[address] Patient Name: SERVANDO HAYES Admission Status: ER Accout number: [id number] Admission Date: 08-16-2018 : 1955 Admission Diagnosis:SHORTNESS OF BREATH Attending: SHILPI RUSS Current LOS: 7 Anticipated DC Date: 08-24-2018 Planned Disposition: Fdc Facility Primary Insurance: [facility] MEDICARE SOLUTIONS PLANNED EXTERNAL PROVIDER: [facility] MEDICARE REHAB BED Discharge Planning Comments: CM RECEIVED CALL FROM ANNEMARIE OF INPATIENT REHAB, PT'S INSURANCE HAS DECLINED REHAB INPATIENT AND SUGGESTED PT'S NEEDS CAN BE MET AT LOWER LEVAL OF CARE. CM MET WITH PT IN ROOM, DISCUSSED INSURANCE DECLINATION OF INPATIENT REHAB, PT REPORTS HE WANTS REHAB IN DETENT[place] CLOSE TO HIS FAMILY IN [place] POSSIBLE. CM DISCUSSED [facility], PT IS AGREEABLE AND HAS PREVIOUSLY SIGNED CHOICE FORM. CM SPOKE TO MANUEL OF [facility] WHO MET WITH PT IN ROOM, CM FAXED REFERRAL TO [facility] AT [phone]; CM WAITING ADMISSION DETERMINATION AND INSURANCE APPROVAL FOR REHAB AT [facility]. Celery Tier: Navin Geronimo DCP- Discharge Planning Updated by [id number]: Ruma Pascal on 08/22/18 6:[address] CM SPOKE WITH ANITA SEWING MACHINE ATTACHMENT TESTER FOR [facility] REHAB SCREENER. PATIENT REQUIRES PREAUTH FROM HIS MANAGED MEDICARE PROVIDER. UPADTE WILL BE PROVIDED AND REHAB WILL FOLLOW UP ON THURSDAY. AWAITING AUTH FOR IP REHAB. DCP- Discharge Planning Updated by [id number]: Navin Geronimo on 08/20/18 5:[address] Patient Name: SERVANDO HAYES Admission Status: ER Accout number: [id number] Admission Date: 08-16-2018 : 1955 Admission Diagnosis:SHORTNESS OF BREATH Attending: SHILPI RUSS Current LOS: 4 Anticipated DC Date: 08-23-2018 Planned Disposition: Inpatient Rehab Primary Insurance: [facility] MEDICARE SOLUTIONS PLANNED EXTERNAL PROVIDER: PLANNED EXTERNAL PROVIDER: [facility] INPATIENT REHAB Discharge Planning Comments: CM RECEIVED INPATIENT REHAB PRESCREENING ORDER, MET WITH PT IN ROOM TO DISCUSS DISCHARGE PLANNING AND NEEDS. PT REPORTS LIVING AT HOME DEPENDENTLY WITH HER ADULT DAUGHTER. PT REPORTS HAVING TRILOGY, HOME OXYGEN, NEBLUIZER AND WALKER WELL A SCOOTER; MEDICAL EQUIPMENT FROM [employer] IN [place]. PT HAS HOME HEALTH WITH [facility]. CM DISCUSSED AVAILABILITY OF HOME HEALTH, REHAB SERVICES AND MEDICAL EQUIPMENT. PT IS AGREEABLE TO REHAB AT [facility] WITH PLAN TO DISCHARGE HOME FROM HOSPITAL REHAB; PT REPORTS HIS DAUGHTER WILL PICK HER UP FOR DISCHARGE HOME. PT WOULD LIKE TO TRY INPATIENT REHAB FIRST BUT DOES NOT KNOW IF INSURANCE WILL APPROVE IT HE WAS IN POST ACUTE CARE IN [place] TWO WEEKS AGO. PT STATES THAT IF INSURANCE WILL NOT PAY FOR INPATIENT REHAB AT [facility], HE WILL CONSENT TO DETENTION REHAB WITH NO PROVIDER PREFERNECE, CHOICE SIGNED FOR SNF WITH NO PROVIDER PREFERENCE. IMPORTANT MESSAGE FROM MEDICARE PROVIDED AND EXPLAINED. CM WAITING COMPLETION OF INPATIENT REHAB PRESCREENING AND ADMISSION DETERMINATION FROM [facility] INPATIENT REHAB. NAVIN GERONIMO, CASE MANAGEMENT DCP- Discharge Planning Updated by [id number]: Sulma Wang on 08/19/18 10:[address] I RECEIVED A CALL FROM MARILYNN LAKHANI RN CASE MANAGER WITH CHRONIC DISEASE DIVISION OF [facility] ([phone] EXT. [phone]). SHE ASKED FOR AN UPDATE ON THE PATIENTS STATUS AND DISCHARGE PLANS. SHE EXPLAINED THAT HE HAS BEEN A FREQUENT FLYER FOR HOSPITAL ADMISSIONS, AND HAD BEEN UNSAFE TO LIVE AT HOME ALONE. SHE STATED THAT HE MOVED IN WITH HIS DAUGHTER, WHO WORKS AND HAS A CHILD, AND SHE WAS UNSURE IF HE WOULD BE SAFE TO RETURN HOME. I EXPLAINED THAT WE RECEIVED AN ORDER FOR REHAB PRESCREEN ON THE PATIENT, AND THEREFORE WE WOULD BE WORKING ON REHAB. I READ HIS PHYSICAL THERAPY EVAL AND NOTES TO HER. WE DON'T BELIEVE THAT IPR WILL BE GOOD FOR THE PATIENT, AND THAT SNF MAY BE THE MOST APPROPRIATE. SHE HAS REQUESTED THAT SHE BE CALLED IF SHE COULD BE OF ASSISTANCE IN ANY WAY WITH DISCHARGE. DCPIA - Discharge Planning Initial Assessment Updated by [id number]: Navin Geronimo on 08/20/18 6:01 pm * Is the patient Alert and Oriented? Yes * How many steps to enter\exit or inside your home? RAMP * PCP DR. KOBE FERREIRA IN [place] * Pharmacy [facility] * Preadmission Environment Home with Family * ADLs Partial Dependent * Partial ADLs (Assistance needed) Ambulation * Equipment Nebulizer Other Oxygen Walker * Other Equipment HOME AND PORTABLE OXYGEN TRILOGY MACHINE POWER SCOOTER * List name and contact numbers for known caregivers / representatives who currently or will assist patient after discharge: [employer] [facility] [place], MEDICAL EQUIOPMENT PROVIDER * Verbal permission to speak to the caregivers and representatives has been obtained from the patient. N/A * Community resources currently utilized Home Health * Please name any agencies selected above. [facility] * Additional services required to return to the preadmission environment? Yes * Can the patient safely return to the preadmission environment? Yes * Has this patient been hospitalized within the prior 30 days at any hospital? Yes Coverage Notice Reviewer: [id number] Baldomero Geronimo Notice Issued Date-Time: 08/20/2018 17:00 Notice Type: Patient Choice Letter Notice Delivered To: Patient Relationship to Patient: Therapeutic Support Staff Name: Delivery Method: HAND - Hand Delivered Hannah Days: Prior Verbal Notification: Recipient Understood Notice: Yes Recipient Signature: Yes Med Rec Note Co-signed by Attending: Coverage Notice Comment: NO SNF PREFERNCE IF DECLINED FOR INPT REHAB Reviewer: [id number] Baldomero Geronimo Notice Issued Date-Time: 08/20/2018 17:00 Notice Type: IM Discharge Notice Notice Delivered To: Patient Relationship to Patient: Therapeutic Support Staff Name: Delivery Method: HAND - Hand Delivered Hannah Days: Prior Verbal Notification: Recipient Understood Notice: Yes Recipient Signature: Yes Med Rec Note Co-signed by Attending: Coverage Notice Comment: Last DP export: 08/23/18 1:05 p Patient Name: SERVANDO HAYES Page 60154 at 1414 All edits/amendments must be made on the electronic document DICTATION DATE: 08/23/181412 EQUITY MANAGER: TRISTAN 08/23/181412 RPT#: [id number] DC DATE: STATUS: ADM IN [facility] [address] [place] [address] END OF REPORT
--- NOTE | ~2018-08-16 | MORECARE ---
CASE MANAGEMENT DISCHARGE SUMMARY PATIENT: SERVANDO HAYES UNIT: [id number] ADM DATE: 08/16/18 AGE: 63 : 59 SEX: M ROOM/BED: D.2140 AUTHOR: MELODYDOC PHYSICIAN: REFERRING PHYSICIAN: SHILPI RUSS MD DATE OF SERVICE: 08/20/18 Discharge Plan Patient Name: SERVANDO HAYES Facility: [facility]:[place] : 1955 Planned Disposition: Inpatient Rehab Anticipated Discharge Date: 08/23/18 Discharge Date: Expected LOS: 7 Initial Reviewer: [id number] Initial Review Date: 08/20/2018 Generated: 08/20/18 7:00 pm Comments DCP- Discharge Planning Updated by [email or web address]: Sulma Wang on 08/19/18 10:[address] I RECEIVED A CALL FROM MARILYNN LAKHANI RN CASE MANAGER WITH CHRONIC DISEASE DIVISION OF [facility] ([phone] EXT. [phone]). SHE ASKED FOR AN UPDATE ON THE PATIENTS STATUS AND DISCHARGE PLANS. SHE EXPLAINED THAT HE HAS BEEN A FREQUENT FLYER FOR HOSPITAL ADMISSIONS, AND HAD BEEN UNSAFE TO LIVE AT HOME ALONE. SHE STATED THAT HE MOVED IN WITH HIS DAUGHTER, WHO WORKS AND HAS A CHILD, AND SHE WAS UNSURE IF HE WOULD BE SAFE TO RETURN HOME. I EXPLAINED THAT WE RECEIVED AN ORDER FOR REHAB PRESCREEN ON THE PATIENT, AND THEREFORE WE WOULD BE WORKING ON REHAB. I READ HIS PHYSICAL THERAPY EVAL AND NOTES TO HER. WE DON'T BELIEVE THAT IPR WILL BE GOOD FOR THE PATIENT, AND THAT SNF MAY BE THE MOST APPROPRIATE. SHE HAS REQUESTED THAT SHE BE CALLED IF SHE COULD BE OF ASSISTANCE IN ANY WAY WITH DISCHARGE. Coverage Notice Reviewer: [id number] [place] Notice Issued Date-Time: 08/20/2018 17:00 Notice Type: Patient Choice Letter Notice Delivered To: Patient Relationship to Patient: Inside Sales Engineer Name: Delivery Method: HAND - Hand Delivered Hannah Days: Prior Verbal Notification: Recipient Understood Notice: Yes Recipient Signature: Yes Med Rec Note Co-signed by Attending: Coverage Notice Comment: NO SNF PREFERNCE IF DECLINED FOR INPT REHAB Reviewer: [id number] [place] Notice Issued Date-Time: 08/20/2018 17:00 Notice Type: IM Discharge Notice Notice Delivered To: Patient Relationship to Patient: Inside Sales Engineer Name: Delivery Method: HAND - Hand Delivered Hannah Days: Prior Verbal Notification: Recipient Understood Notice: Yes Recipient Signature: Yes Med Rec Note Co-signed by Attending: Coverage Notice Comment: Patient Name: SERVANDO HAYES Page 26996 at 1801 All edits/amendments must be made on the electronic document DICTATION DATE: 08/20/181799 BEARINGIZER: TRISTAN 08/20/181799 RPT#: [id number] DC DATE: STATUS: ADM IN [facility] [address] [place] [address] END OF REPORT
--- NOTE | ~2018-08-16 | MORECARE ---
CASE MANAGEMENT DISCHARGE SUMMARY PATIENT: SERVANDO HAYES UNIT: [id number] ADM DATE: 08/16/18 AGE: 63 : 59 SEX: M ROOM/BED: D.2140 AUTHOR: MELODY,DOC PHYSICIAN: REFERRING PHYSICIAN: SHILPI RUSS MD DATE OF SERVICE: 08/24/18 Discharge Plan Patient Name: SERVANDO HAYES Facility: [facility]:[place] : 1955 Planned Disposition: Snf Facility Anticipated Discharge Date: 08/24/18 Discharge Date: Expected LOS: 8 Initial Reviewer: [id number] Initial Review Date: 08/20/2018 Generated: 08/24/18 7:17 pm Comments DCP- Discharge Planning Updated by [id number]: Navin Geronimo on 08/24/18 5:[address] Patient Name: SERVANDO HAYES Encounter No: [id number] : 1955 Primary Insurance: [facility] MEDICARE SOLUTIONS Anticipated DC Date: 08-24-2018 Planned Disposition: Snf Facility External Planned Provider: [facility], MEDICARE REHAB BED Discharge Planning Comments: CM SPOKE TO MANUEL OF [facility] WHO REPORTS NEEDING PT'S TRILOGY MACHINE SETTINGS WELL PROJECTED DISCHARGE DATE TO PROVIDE TO INSURANCE FOR REHAB CONSIDERATION. CM TO ATTEMPT TO ACQUIRE TRILOGY MACHINE SETTINGS SOON POSSIBLE AND PROVIDE TO [facility]. CM WAITING ADMISSION DETERMINATION AND INSURANCE APPROVAL FOR REHAB AT [facility]. Master Deputy Sheriff Court Security: Navin Geronimo DCP- Discharge Planning Updated by [id number]: Navin Geronimo on 08/23/18 1:[address] Patient Name: SERVANDO HAYES Admission Status: ER Accout number: [id number] Admission Date: 08-16-2018 : 1955 Admission Diagnosis:SHORTNESS OF BREATH Attending: SHILPI RUSS Current LOS: 7 Anticipated DC Date: 08-24-2018 Planned Disposition: Snf Facility Primary Insurance: [facility] MEDICARE SOLUTIONS PLANNED EXTERNAL PROVIDER: [facility], MEDICARE REHAB BED Discharge Planning Comments: CM RECEIVED CALL FROM ANNEMARIE OF INPATIENT REHAB, PT'S INSURANCE HAS DECLINED REHAB INPATIENT AND SUGGESTED PT'S NEEDS CAN BE MET AT LOWER LEVAL OF CARE. CM MET WITH PT IN ROOM, DISCUSSED INSURANCE DECLINATION OF INPATIENT REHAB, PT REPORTS HE WANTS REHAB IN LONGTERM CLOSE TO HIS FAMILY IN [place] POSSIBLE. CM DISCUSSED [facility], PT IS AGREEABLE AND HAS PREVIOUSLY SIGNED CHOICE FORM. CM SPOKE TO MANUEL OF [facility] WHO MET WITH PT IN ROOM, CM FAXED REFERRAL TO [facility] AT [phone]; CM WAITING ADMISSION DETERMINATION AND INSURANCE APPROVAL FOR REHAB AT [facility]. Master Deputy [address] Security: Navin Geronimo DCP- Discharge Planning Updated by [id number]: Rumaeufemia Pascal on 08/22/18 6:[address] CM SPOKE WITH ANITA [employer] FOR [facility] REHAB SCREENER. PATIENT REQUIRES PREAUTH FROM HIS MANAGED MEDICARE PROVIDER. UPADTE WILL BE PROVIDED AND REHAB WILL FOLLOW UP ON THURSDAY. AWAITING AUTH FOR IP REHAB. DCP- Discharge Planning Updated by [id number]: Navin Geronimo on 08/20/18 5:[address] Patient Name: SERVANDO HAYES Admission Status: ER Accout number: [id number] Admission Date: 08-16-2018 : 1955 Admission Diagnosis:SHORTNESS OF BREATH Attending: SHILPI RUSS Current LOS: 4 Anticipated DC Date: 08-23-2018 Planned Disposition: Inpatient Rehab Primary Insurance: [facility] MED[facility] SOLUTIONS PLANNED EXTERNAL PROVIDER: PLANNED EXTERNAL PROVIDER: [facility] INPATIENT REHAB Discharge Planning Comments: CM RECEIVED INPATIENT REHAB PRESCREENING ORDER, MET WITH PT IN ROOM TO DISCUSS DISCHARGE PLANNING AND NEEDS. PT REPORTS LIVING AT HOME DEPENDENTLY WITH HER ADULT DAUGHTER. PT REPORTS HAVING TRILOGY, HOME OXYGEN, NEBLUIZER AND WALKER WELL A SCOOTER; MEDICAL EQUIPMENT FROM [email or web address] IN [place]. PT HAS HOME HEALTH WITH [employer] [facility]. CM DISCUSSED AVAILABILITY OF HOME HEALTH, REHAB SERVICES AND MEDICAL EQUIPMENT. PT IS AGREEABLE TO REHAB AT [place] WITH PLAN TO DISCHARGE HOME FROM HOSPITAL REHAB; PT REPORTS HIS DAUGHTER WILL PICK HER UP FOR DISCHARGE HOME. PT WOULD LIKE TO TRY INPATIENT REHAB FIRST BUT DOES NOT KNOW IF INSURANCE WILL APPROVE IT HE WAS IN [facility] IN [place] TWO WEEKS AGO. PT STATES THAT IF INSURANCE WILL NOT PAY FOR INPATIENT REHAB AT [facility], HE WILL CONSENT TO LONGTERM REHAB WITH NO PROVIDER PREFERNECE, CHOICE SIGNED FOR SNF WITH NO PROVIDER PREFERENCE. IMPORTANT MESSAGE FROM MEDICARE PROVIDED AND EXPLAINED. CM WAITING COMPLETION OF INPATIENT REHAB PRESCREENING AND ADMISSION DETERMINATION FROM [facility] INPATIENT REHAB. NAVIN GERONIMO, CASE MANAGEMENT DCP- Discharge Planning Updated by [id number]: Sulma Wang on 08/19/18 10:[address] I RECEIVED A CALL FROM MARILYNN LAKHANI ENROBER WITH CHRONIC DISEASE DIVISION OF [facility] ([phone] EXT. [phone]). SHE ASKED FOR AN UPDATE ON THE PATIENTS STATUS AND DISCHARGE PLANS. SHE EXPLAINED THAT HE HAS BEEN A FREQUENT FLYER FOR HOSPITAL ADMISSIONS, AND HAD BEEN UNSAFE TO LIVE AT HOME ALONE. SHE STATED THAT HE MOVED IN WITH HIS DAUGHTER, WHO WORKS AND HAS A CHILD, AND SHE WAS UNSURE IF HE WOULD BE SAFE TO RETURN HOME. I EXPLAINED THAT WE RECEIVED AN ORDER FOR REHAB PRESCREEN ON THE PATIENT, AND THEREFORE WE WOULD BE WORKING ON REHAB. I READ HIS PHYSICAL THERAPY EVAL AND NOTES TO HER. WE DON'T BELIEVE THAT IPR WILL BE GOOD FOR THE PATIENT, AND THAT SNF MAY BE THE MOST APPROPRIATE. SHE HAS REQUESTED THAT SHE BE CALLED IF SHE COULD BE OF ASSISTANCE IN ANY WAY WITH DISCHARGE. DCPIA - Discharge Planning Initial Assessment Updated by [id number]: Navin Geronimo on 08/20/18 6:01 pm * Is the patient Alert and Oriented? Yes * How many steps to enter\exit or inside your home? RAMP * PCP DR. KBOE FERREIRA IN [place] * [facility] * Preadmission Environment Home with Family * ADLs Partial Dependent * Partial ADLs (Assistance needed) Ambulation * Equipment Nebulizer Other Oxygen Walker * Other Equipment HOME AND PORTABLE OXYGEN TRILOGY MACHINE POWER SCOOTER * List name and contact numbers for known caregivers / representatives who currently or will assist patient after discharge: [employer] [facility] [facility] [place], MEDICAL EQUIOPMENT PROVIDER * Verbal permission to speak to the caregivers and representatives has been obtained from the patient. N/A * Community resources currently utilized Home Health * Please name any agencies selected above. [facility] * Additional services required to return to the preadmission environment? Yes * Can the patient safely return to the preadmission environment? Yes * Has this patient been hospitalized within the prior 30 days at any hospital? Yes Coverage Notice Reviewer: [id number] - Navin Geronimo Notice Issued Date-Time: 08/20/2018 17:00 Notice Type: Patient Choice Letter Notice Delivered To: Patient Relationship to Patient: Kitchen Hand Name: Delivery Method: HAND - Hand Delivered Hannah Days: Prior Verbal Notification: Recipient Understood Notice: Yes Recipient Signature: Yes Med Rec Note Co-signed by Attending: Coverage Notice Comment: NO SNF PREFERNCE IF DECLINED FOR INPT REHAB Reviewer: [id number] Baldom[place] Geronimo Notice Issued Date-Time: 08/20/2018 17:00 Notice Type: IM Discharge Notice Notice Delivered To: Patient Relationship to Patient: Kitchen Hand Name: Delivery Method: HAND - Hand Delivered Hannah Days: Prior Verbal Notification: Recipient Understood Notice: Yes Recipient Signature: Yes Med Rec Note Co-signed by Attending: Coverage Notice Comment: Last DP export: 08/23/18 1:14 p Patient Name: SERVANDO HAYES Page 90305 at 1817 All edits/amendments must be made on the electronic document DICTATION DATE: 08/24/181816 RETAIL SALES SPECIALIST: TRISTAN 08/24/181816 RPT#: [id number] DC DATE: STATUS: ADM IN [facility] [address] [place] [address] END OF REPORT
--- NOTE | ~2018-08-16 | MORECARE ---
CASE MANAGEMENT DISCHARGE SUMMARY PATIENT: SERVANDO HAYES UNIT: [id number] ADM DATE: 08/16/18 AGE: 63 : 59 SEX: M ROOM/BED: D.2140 AUTHOR: MELODY,DOC PHYSICIAN: REFERRING PHYSICIAN: SHILPI RUSS MD DATE OF SERVICE: 08/25/18 Discharge Plan Patient Name: SERVANDO HAYES Facility: [facility]:[place] : 1955 Planned Disposition: Home with Home Health Anticipated Discharge Date: 08/25/18 Discharge Date: Expected LOS: 9 Initial Reviewer: [id number] Initial Review Date: 08/20/2018 Generated: 08/25/18 6:00 pm Comments DCP- Discharge Planning Updated by [id number]: Magdalena Geronimo on 08/25/18 3:[address] Patient Name: SERVANDO HAYES Encounter No: [id number] : 1955 Primary Insurance: [facility] MEDICARE SOLUTIONS Anticipated DC Date: 08-25-2018 Planned Disposition: Home with Home Health External Planned Provider: [facility] DCP follow-up note: CM RECEIVED CALL FROM MARILYNN ROMERO, [facility] MEDICARE NURSE TEACHING ASSISTANT, WHO REPORTS THAT SHE WAS INFORMED THAT PT CANNOT AFFORD COPAY FOR REHAB AND SHE DOES NOT FEEL THAT DISCHARGE TO HOME IS A SAFE DISCHARGE PLAN FOR PT. CM WILL SPEAK TO PT AND DETERMINE PT'S PLAN. CM SPOKE TO PT THIS MORNING, PT REPORTS HE IS NOT WILLING TO PAY $150 DAILY COPAY FOR REHAB SERVICES. CM DISCUSSED HALF-WAY CARE PLACEMENT IN [place]. PT REPORTS HE IS NOT WILLING FOR PLACEMENT AND DOES NOT WANT TO LOSE HIS CHECK. PT REPORTS PLAN TO RETURN HOME WITH HOME HEALTH. PT STATES HIS HOME IS SAFE AND THAT HIS DAUGHTER WILL BE AT HOME WITH HIM AT ALL TIMES. CM DISCUSSED PT'S THERAPY NOTES AND WEAKNESS. PT STATES THAT HE WILL BE ABLE TO TAKE CARE OF HIMSELF WITH ASSISTANCE OF DAUGHTER. CM INFORMED PT THAT HIS CLOTHING WORKER INFORMED CM THAT SHE DOES NOT FEEL PT IS SAFE TO DISCHARGE BACK TO HIS PREVIOUS ENVIRONMENT AT HOME. PT STATES THAT HE IS SAFE AT HOME, FAMILY WILL BE THERE AND NO ONE CAN MAKE HIM GO TO THE [place]. CM NOTIFIED JAMILA SCHWARTZ AND RECEIVED DISCHARGE ORDERS. KIRILL CALLED MARILYNN AT [facility], , X [phone], NOTIFIED OF ABOVE. CM CALLED [facility], , WITH ALLEGATIONS OF PT'S UNSAFE LIVING CONDITION NOT HAVING ADEQUATE CAREGIVERS AT HOME. CASE # [id number]. CM CALLED AND SPOKE TO KETTY AT [facility], WHO ADVISED THEY WILL NOT ACCEPT PT BACK DUE TO UNSAFE LIVING CONDITIONS FOR PT. CM ADVISED PT. PT ASKED FOR EITHER [facility] OR [facility], CHOICE SIGNED. PT DENIES FURTHER DISCHARGE NEEDS, HE REPORTS FAMILY WILL PICK HIM UP FOR DISCHARGE HOME. CM CALLED [facility], , SPOKE TO MARCOS, ADVISED OF ABOVE, MARCOS REPORTS THEY WILL ATTEMPT TO ADMIT PT ON THURSDAY. CM FAXED HOME HEALTH REFERRAL TO [facility] AT [phone]. BEDSIDE NURSE NOTIFIED. Magdalena Geronimo, CASE MANAGEMENT DCP- Discharge Planning Updated by [id number]: Magdalena Geronimo on 08/24/18 5:[address] Patient Name: SERVANDO HAYES Encounter No: [id number] : 1955 Primary Insurance: [facility] MEDICARE SOLUTIONS Anticipated DC Date: 08-24-2018 Planned Disposition: Senior Living Facility External Planned Provider: [facility], MEDICARE REHAB BED Discharge Planning Comments: CM SPOKE TO MANUEL OF [facility] WHO REPORTS NEEDING PT'S TRILOGY MACHINE SETTINGS WELL PROJECTED DISCHARGE DATE TO PROVIDE TO INSURANCE FOR REHAB CONSIDERATION. CM TO ATTEMPT TO ACQUIRE TRILOGY MACHINE SETTINGS SOON POSSIBLE AND PROVIDE TO [facility]. CM WAITING ADMISSION DETERMINATION AND INSURANCE APPROVAL FOR REHAB AT [facility]. Bricklayer Supervisor: Magdalena Geronimo DCP- Discharge Planning Updated by [id number]: Magdalena Geronimo on 08/23/18 1:[address] Patient Name: SERVANDO HAYES Admission Status: ER Accout number: [id number] Admission Date: 08-16-2018 : 1955 Admission Diagnosis:SHORTNESS OF BREATH Attending: SHILPI RUSS Current LOS: 7 Anticipated DC Date: 08-24-2018 Planned Disposition: Senior Living Facility Primary Insurance: [facility] MEDICARE SOLUTIONS PLANNED EXTERNAL PROVIDER: [facility], MEDICARE REHAB BED Discharge Planning Comments: CM RECEIVED CALL FROM ANNEMARIE OF INPATIENT REHAB, PT'S INSURANCE HAS DECLINED REHAB INPATIENT AND SUGGESTED PT'S NEEDS CAN BE MET AT [facility]. CM MET WITH PT IN ROOM, DISCUSSED INSURANCE DECLINATION OF INPATIENT REHAB, PT REPORTS HE WANTS REHAB IN ALF CLOSE TO HIS FAMILY IN [place] POSSIBLE. CM DISCUSSED [facility], PT IS AGREEABLE AND HAS PREVIOUSLY SIGNED CHOICE FORM. CM SPOKE TO MANUEL OF [facility] WHO MET WITH PT IN ROOM, CM FAXED REFERRAL TO [facility] AT [phone]; CM WAITING ADMISSION DETERMINATION AND INSURANCE APPROVAL FOR REHAB AT [facility]. Bricklayer Supervisor: Magdalena Geronimo DCP- Discharge Planning Updated by [id number]: Rumaeufemia Pascal on 08/22/18 6:[address] CM SPOKE WITH ANITA OCCUPATIONAL THERAPY MANAGER FOR [facility] REHAB SCREENER. PATIENT REQUIRES PREAUTH FROM HIS MANAGED MEDICARE PROVIDER. UPADTE WILL BE PROVIDED AND REHAB WILL FOLLOW UP ON THURSDAY. AWAITING AUTH FOR IP REHAB. DCP- Discharge Planning Updated by [id number]: Magdalena Geronimo on 08/20/18 5:[address] Patient Name: SERVANDO HAYES Admission Status: ER Accout number: [id number] Admission Date: 08-16-2018 : 1955 Admission Diagnosis:SHORTNESS OF BREATH Attending: SHILPI RUSS Current LOS: 4 Anticipated DC Date: 08-23-2018 Planned Disposition: Inpatient Rehab Primary Insurance: [facility] MEDICARE SOLUTIONS PLANNED EXTERNAL PROVIDER: PLANNED EXTERNAL PROVIDER: [facility] INPATIENT REHAB Discharge Planning Comments: CM RECEIVED INPATIENT REHAB PRESCREENING ORDER, MET WITH PT IN ROOM TO DISCUSS DISCHARGE PLANNING AND NEEDS. PT REPORTS LIVING AT HOME DEPENDENTLY WITH HER ADULT DAUGHTER. PT REPORTS HAVING TRILOGY, HOME OXYGEN, NEBLUIZER AND WALKER WELL A SCOOTER; MEDICAL EQUIPMENT FROM [employer] IN [place]. PT HAS HOME HEALTH WITH [employer]. CM DISCUSSED AVAILABILITY OF HOME HEALTH, REHAB SERVICES AND MEDICAL EQUIPMENT. PT IS AGREEABLE TO REHAB AT [place] WITH PLAN TO DISCHARGE HOME FROM HOSPITAL REHAB; PT REPORTS HIS DAUGHTER WILL PICK HER UP FOR DISCHARGE HOME. PT WOULD LIKE TO TRY INPATIENT REHAB FIRST BUT DOES NOT KNOW IF INSURANCE WILL APPROVE IT HE WAS IN [facility] IN [place] TWO WEEKS AGO. PT STATES THAT IF INSURANCE WILL NOT PAY FOR INPATIENT REHAB AT [facility], HE WILL CONSENT TO ALF REHAB WITH NO PROVIDER PREFERNECE, CHOICE SIGNED FOR SNF WITH NO PROVIDER PREFERENCE. IMPORTANT MESSAGE FROM MEDICARE PROVIDED AND EXPLAINED. CM WAITING COMPLETION OF INPATIENT REHAB PRESCREENING AND ADMISSION DETERMINATION FROM [facility] INPATIENT REH[facility]. MAGDALENA GERONIMO, CASE MANAGEMENT DCP- Discharge Planning Updated by [id number]: Sulma Wang on 08/19/18 10:[address] I RECEIVED A CALL FROM MARILYNN LAKHANI RN CASE MANAGER WITH CHRONIC DISEASE DIVISION OF [facility] ([phone] EXT. [phone]). SHE ASKED FOR AN UPDATE ON THE PATIENTS STATUS AND DISCHARGE PLANS. SHE EXPLAINED THAT HE HAS BEEN A FREQUENT FLYER FOR HOSPITAL ADMISSIONS, AND HAD BEEN UNSAFE TO LIVE AT HOME ALONE. SHE STATED THAT HE MOVED IN WITH HIS DAUGHTER, WHO WORKS AND HAS A CHILD, AND SHE WAS UNSURE IF HE WOULD BE SAFE TO RETURN HOME. I EXPLAINED THAT WE RECEIVED AN ORDER FOR REHAB PRESCREEN ON THE PATIENT, AND THEREFORE WE WOULD BE WORKING ON REHAB. I READ HIS PHYSICAL THERAPY EVAL AND NOTES TO HER. WE DON'T BELIEVE THAT IPR WILL BE GOOD FOR THE PATIENT, AND THAT SNF MAY BE THE MOST APPROPRIATE. SHE HAS REQUESTED THAT SHE BE CALLED IF SHE COULD BE OF ASSISTANCE IN ANY WAY WITH DISCHARGE. DCPIA - Discharge Planning Initial Assessment Updated by [id number]: Magdalena Geronimo on 08/20/18 6:01 pm * Is the patient Alert and Oriented? Yes * How many steps to enter\exit or inside your home? RAMP * PCP DR. KOBE FERREIRA IN [place] * Pharmacy [facility] * Preadmission Environment Home with Family * ADLs Partial Dependent * Partial ADLs (Assistance needed) Ambulation * Equipment Nebulizer Other Oxygen Walker * Other Equipment HOME AND PORTABLE OXYGEN TRILOGY MACHINE POWER SCOOTER * List name and contact numbers for known caregivers / representatives who currently or will assist patient after discharge: [facility] [employer] [facility] [place], MEDICAL EQUIOPMENT PROVIDER * Verbal permission to speak to the caregivers and representatives has been obtained from the patient. N/A * Community resources currently utilized Home Health * Please name any agencies selected above. [facility] * Additional services required to return to the preadmission environment? Yes * Can the patient safely return to the preadmission environment? Yes * Has this patient been hospitalized within the prior 30 days at any hospital? Yes External Providers External Provider: [facility] Next Contact Date: 08/25/2018 Service Request Date: Service Type: Resolution: Reviewer: Comments: Coverage Notice Reviewer: SAVANAH Geronimo Notice Issued Date-Time: 08/20/2018 17:00 Notice Type: Patient Choice Letter Notice Delivered To: Patient Relationship to Patient: Erisa Attorney Name: Delivery Method: HAND - Hand Delivered Hannah Days: Prior Verbal Notification: Recipient Understood Notice: Yes Recipient Signature: Yes Med Rec Note Co-signed by Attending: Coverage Notice Comment: NO SNF PREFERNCE IF DECLINED FOR INPT REHAB Reviewer: SAVANAH Geronimo Notice Issued Date-Time: 08/20/2018 17:00 Notice Type: IM Discharge Notice Notice Delivered To: Patient Relationship to Patient: Erisa Attorney Name: Delivery Method: HAND - Hand Delivered Hannah Days: Prior Verbal Notification: Recipient Understood Notice: Yes Recipient Signature: Yes Med Rec Note Co-signed by Attending: Coverage Notice Comment: Reviewer: SAVANAH Geronimo Notice Issued Date-Time: 08/25/2018 13:50 Notice Type: IM Discharge Notice Notice Delivered To: Patient Relationship to Patient: Erisa Attorney Name: Delivery Method: HAND - Hand Delivered Hannah Days: Prior Verbal Notification: Recipient Understood Notice: Yes Recipient Signature: Yes Med Rec Note Co-signed by Attending: Coverage Notice Comment: Reviewer: SAVANAH Geronimo Notice Issued Date-Time: 08/25/2018 13:50 Notice Type: Patient Choice Letter Notice Delivered To: Patient Relationship to Patient: Erisa Attorney Name: Delivery Method: HAND - Hand Delivered Hannah Days: Prior Verbal Notification: Recipient Understood Notice: Yes Recipient Signature: Yes Med Rec Note Co-signed by Attending: Coverage Notice Comment: [facility] Last DP export: 08/25/18 3:46 p Patient Name: SERVANDO HAYES Page [id number] at 1700 All edits/amendments must be made on the electronic document DICTATION DATE: 08/25/18 1700 FILLING STATION EQUIPMENT MECHANIC: TRISTAN 08/25/18 1700 RPT#: [id number] DC DATE: STATUS: ADM IN [facility] [address] [place] [address] END OF REPORT
--- NOTE | ~2018-08-16 | MORECARE ---
CASE MANAGEMENT DISCHARGE SUMMARY PATIENT: SERVANDO HAYES UNIT: [id number] ADM DATE: 08/16/18 AGE: 63 : [birth year] SEX: M ROOM/BED: D.2140 AUTHOR: MELODY,DOC PHYSICIAN: REFERRING PHYSICIAN: SHILPI RUSS MD DATE OF SERVICE: 08/25/18 Discharge Plan Patient Name: SERVANDO HAYES Facility: [facility]:[place] : 1955 Planned Disposition: Home with Home Health Anticipated Discharge Date: 08/25/18 Discharge Date: Expected LOS: 9 Initial Reviewer: [id number] Initial Review Date: 08/20/2018 Generated: 08/25/18 6:49 pm Comments DCP- Discharge Planning Updated by [id number]: Magdalena Geronimo on 08/25/18 3:[address] Patient Name: SERVANDO HAYES Encounter No: [id number] : 1955 Primary Insurance: [facility] MEDICARE SOLUTIONS Anticipated DC Date: 08-25-2018 Planned Disposition: Home with Home Health External Planned Provider: [facility] DCP follow-up note: CM RECEIVED CALL FROM MARILYNN ROMERO, [facility] MEDICARE NURSE LEAD RUBY ON RAILS DEVELOPER, WHO REPORTS THAT SHE WAS INFORMED THAT PT CANNOT AFFORD COPAY FOR REHAB AND SHE DOES NOT FEEL THAT DISCHARGE TO HOME IS A SAFE DISCHARGE PLAN FOR PT. CM WILL SPEAK TO PT AND DETERMINE PT'S PLAN. CM SPOKE TO PT THIS MORNING, PT REPORTS HE IS NOT WILLING TO PAY $150 DAILY COPAY FOR REHAB SERVICES. CM DISCUSSED [facility] CARE PLACEMENT IN INTERMEDIATE. PT REPORTS HE IS NOT WILLING FOR PLACEMENT AND DOES NOT WANT TO LOSE HIS CHECK. PT REPORTS PLAN TO RETURN HOME WITH HOME HEALTH. PT STATES HIS HOME IS SAFE AND THAT HIS DAUGHTER WILL BE AT HOME WITH HIM AT ALL TIMES. CM DISCUSSED PT'S THERAPY NOTES AND WEAKNESS. PT STATES THAT HE WILL BE ABLE TO TAKE CARE OF HIMSELF WITH ASSISTANCE OF DAUGHTER. CM INFORMED PT THAT HIS HEALTHCARE TECHNICIAN INFORMED CM THAT SHE DOES NOT FEEL PT IS SAFE TO DISCHARGE BACK TO HIS PREVIOUS ENVIRONMENT AT HOME. PT STATES THAT HE IS SAFE AT HOME, FAMILY WILL BE THERE AND NO ONE CAN MAKE HIM GO TO THE INTERMEDIATE. CM NOTIFIED JAMILA SCHWARTZ AND RECEIVED DISCHARGE ORDERS. KIRILL CALLED MARILYNN AT [facility], , X [phone], NOTIFIED OF ABOVE. CM CALLED [facility], , WITH ALLEGATIONS OF PT'S UNSAFE LIVING CONDITION NOT HAVING ADEQUATE CAREGIVERS AT HOME. CASE # [id number]. CM CALLED AND SPOKE TO KETTY AT [facility] AT HOME, WHO ADVISED THEY WILL NOT ACCEPT PT BACK DUE TO UNSAFE LIVING CONDITIONS FOR PT. CM ADVISED PT. PT ASKED FOR EITHER [facility] OR [facility], CHOICE SIGNED. PT DENIES FURTHER DISCHARGE NEEDS, HE REPORTS FAMILY WILL PICK HIM UP FOR DISCHARGE HOME. CM CALLED [facility], , SPOKE TO MARCOS, ADVISED OF ABOVE, MARCOS REPORTS THEY WILL ATTEMPT TO ADMIT PT ON THURSDAY. CM FAXED HOME HEALTH REFERRAL TO [facility] AT [phone]. BEDSIDE NURSE NOTIFIED. Magdalena Geronimo, CASE MANAGEMENT DCP- Discharge Planning Updated by [id number]: Magdalena Geronimo on 08/24/18 5:[address] Patient Name: SERVANDO HAYES Encounter No: [id number] : 1955 Primary Insurance: [facility] MEDICARE SOLUTIONS Anticipated DC Date: 08-24-2018 Planned Disposition: Custodial Facility External Planned Provider: [facility], MEDICARE REHAB BED Discharge Planning Comments: CM SPOKE TO MANUEL OF [facility] WHO REPORTS NEEDING PT'S TRILOGY MACHINE SETTINGS WELL PROJECTED DISCHARGE DATE TO PROVIDE TO INSURANCE FOR REHAB CONSIDERATION. CM TO ATTEMPT TO ACQUIRE TRILOGY MACHINE SETTINGS SOON POSSIBLE AND PROVIDE TO [facility]. CM WAITING ADMISSION DETERMINATION AND INSURANCE APPROVAL FOR REHAB AT [facility]. Manager Technical Services: Magdalena Geronimo DCP- Discharge Planning Updated by [email or web address]: Magdalena Geronimo on 08/23/18 1:[address] Patient Name: SERVANDO HAYES Admission Status: ER Accout number: [id number] Admission Date: 08-16-2018 : 1955 Admission Diagnosis:SHORTNESS OF BREATH Attending: SHILPI RUSS Current LOS: 7 Anticipated DC Date: 08-24-2018 Planned Disposition: Custodial Facility Primary Insurance: [facility] MEDICARE SOLUTIONS PLANNED EXTERNAL PROVIDER: [facility], MEDICARE REHAB BED Discharge Planning Comments: CM RECEIVED CALL FROM ANNEMARIE OF INPATIENT REHAB, PT'S INSURANCE HAS DECLINED REHAB INPATIENT AND SUGGESTED PT'S NEEDS CAN BE MET AT [facility] OF CARE. CM MET WITH PT IN ROOM, DISCUSSED INSURANCE DECLINATION OF INPATIENT REHAB, PT REPORTS HE WANTS REHAB IN HALF-WAY CLOSE TO HIS FAMILY IN [place] POSSIBLE. CM DISCUSSED [facility], PT IS AGREEABLE AND HAS PREVIOUSLY SIGNED CHOICE FORM. CM SPOKE TO MANUEL OF [facility] WHO MET WITH PT IN ROOM, CM FAXED REFERRAL TO [facility] AT [phone]; CM WAITING ADMISSION DETERMINATION AND INSURANCE APPROVAL FOR REHAB AT [facility]. Manager Technical Services: Magdalena Geronimo DCP- Discharge Planning Updated by [id number]: Rumaeufemia Pascal on 08/22/18 6:[address] CM SPOKE WITH ANITA RN ACUTE DIALYSIS FOR [facility] RE[facility] SCREENER. PATIENT REQUIRES PREAUTH FROM HIS MANAGED MEDICARE PROVIDER. UPADTE WILL BE PROVIDED AND REHAB WILL FOLLOW UP ON THURSDAY. AWAITING AUTH FOR IP REHAB. DCP- Discharge Planning Updated by [id number]: Magdalena Geronimo on 08/20/18 5:[address] Patient Name: SERVANDO HAYES Admission Status: ER Accout number: [id number] Admission Date: 08-16-2018 : 1955 Admission Diagnosis:SHORTNESS OF BREATH Attending: SHILPI RUSS Current LOS: 4 Anticipated DC Date: 08-23-2018 Planned Disposition: Inpatient Rehab Primary Insurance: [facility] MEDICARE SOLUTIONS PLANNED EXTERNAL PROVIDER: PLANNED EXTERNAL PROVIDER: [facility] INPATIENT REHAB Discharge Planning Comments: CM RECEIVED INPATIENT REHAB PRESCREENING ORDER, MET WITH PT IN ROOM TO DISCUSS DISCHARGE PLANNING AND NEEDS. PT REPORTS LIVING AT HOME DEPENDENTLY WITH HER ADULT DAUGHTER. PT REPORTS HAVING TRILOGY, HOME OXYGEN, NEBLUIZER AND WALKER WELL A SCOOTER; MEDICAL EQUIPMENT FROM [employer] IN [place]. PT HAS HOME HEALTH WITH [employer] AT HOME. CM DISCUSSED AVAILABILITY OF HOME HEALTH, REHAB SERVICES AND MEDICAL EQUIPMENT. PT IS AGREEABLE TO REHAB AT [facility] WITH PLAN TO DISCHARGE HOME FROM HOSPITAL REHAB; PT REPORTS HIS DAUGHTER WILL PICK HER UP FOR DISCHARGE HOME. PT WOULD LIKE TO TRY INPATIENT REHAB FIRST BUT DOES NOT KNOW IF INSURANCE WILL APPROVE IT HE WAS IN [facility] IN [place] TWO WEEKS AGO. PT STATES THAT IF INSURANCE WILL NOT PAY FOR INPATIENT REHAB AT [facility], HE WILL CONSENT TO HALF-WAY REHAB WITH NO PROVIDER PREFERNECE, CHOICE SIGNED FOR SNF WITH NO PROVIDER PREFERENCE. IMPORTANT MESSAGE FROM MEDICARE PROVIDED AND EXPLAINED. CM WAITING COMPLETION OF INPATIENT REHAB PRESCREENING AND ADMISSION DETERMINATION FROM [facility] INPATIENT REHAB. MAGDALENA GREONIMO, CASE MANAGEMENT DCP- Discharge Planning Updated by [id number]: Sulma Wang on 08/19/18 10:[address] I RECEIVED A CALL FROM MARILYNN LAKHANI RN CASE MANAGER WITH CHRONIC DISEASE DIVISION OF [facility] ([phone] EXT. [phone]). SHE ASKED FOR AN UPDATE ON THE PATIENTS STATUS AND DISCHARGE PLANS. SHE EXPLAINED THAT HE HAS BEEN A FREQUENT FLYER FOR HOSPITAL ADMISSIONS, AND HAD BEEN UNSAFE TO LIVE AT HOME ALONE. SHE STATED THAT HE MOVED IN WITH HIS DAUGHTER, WHO WORKS AND HAS A CHILD, AND SHE WAS UNSURE IF HE WOULD BE SAFE TO RETURN HOME. I EXPLAINED THAT WE RECEIVED AN ORDER FOR REHAB PRESCREEN ON THE PATIENT, AND THEREFORE WE WOULD BE WORKING ON REHAB. I READ HIS PHYSICAL THERAPY EVAL AND NOTES TO HER. WE DON'T BELIEVE THAT IPR WILL BE GOOD FOR THE PATIENT, AND THAT SNF MAY BE THE MOST APPROPRIATE. SHE HAS REQUESTED THAT SHE BE CALLED IF SHE COULD BE OF ASSISTANCE IN ANY WAY WITH DISCHARGE. DCPIA - Discharge Planning Initial Assessment Updated by [id number]: Magdalena Geronimo on 08/20/18 6:01 pm * Is the patient Alert and Oriented? Yes * How many steps to enter\exit or inside your home? RAMP * PCP DR. KOBE FERREIRA IN [place] * Pharmacy [facility] * Preadmission Environment Home with Family * ADLs Partial Dependent * Partial ADLs (Assistance needed) Ambulation * Equipment Nebulizer Other Oxygen Walker * Other Equipment HOME AND PORTABLE OXYGEN TRILOGY MACHINE POWER SCOOTER * List name and contact numbers for known caregivers / representatives who currently or will assist patient after discharge: [employer] [employer] IN [place], MEDICAL EQUIOPMENT PROVIDER * Verbal permission to speak to the caregivers and representatives has been obtained from the patient. N/A * Community resources currently utilized Home Health * Please name any agencies selected above. [facility] * Additional services required to return to the preadmission environment? Yes * Can the patient safely return to the preadmission environment? Yes * Has this patient been hospitalized within the prior 30 days at any hospital? Yes External Providers External Provider: OTHER-OTHER Next Contact Date: 08/25/2018 Service Request Date: Service Type: Resolution: Reviewer: Comments: Coverage Notice Reviewer: SAVANAH Geronimo Notice Issued Date-Time: 08/25/2018 13:50 Notice Type: Patient Choice Letter Notice Delivered To: Patient Relationship to Patient: Pheresis Specialist Name: Delivery Method: HAND - Hand Delivered Hannah Days: Prior Verbal Notification: Recipient Understood Notice: Yes Recipient Signature: Yes Med Rec Note Co-signed by Attending: Coverage Notice Comment: JUANJOSE OR ELITE Reviewer: SAVANAH Geronimo Notice Issued Date-Time: 08/20/2018 17:00 Notice Type: Patient Choice Letter Notice Delivered To: Patient Relationship to Patient: Pheresis Specialist Name: Delivery Method: HAND - Hand Delivered Hannah Days: Prior Verbal Notification: Recipient Understood Notice: Yes Recipient Signature: Yes Med Rec Note Co-signed by Attending: Coverage Notice Comment: NO SNF PREFERNCE IF DECLINED FOR INPT REHAB Reviewer: SAVANAH Geronimo Notice Issued Date-Time: 08/25/2018 13:50 Notice Type: IM Discharge Notice Notice Delivered To: Patient Relationship to Patient: Pheresis Specialist Name: Delivery Method: HAND - Hand Delivered Hannah Days: Prior Verbal Notification: Recipient Understood Notice: Yes Recipient Signature: Yes Med Rec Note Co-signed by Attending: Coverage Notice Comment: Reviewer: SAVANAH Geronimo Notice Issued Date-Time: 08/20/2018 17:00 Notice Type: IM Discharge Notice Notice Delivered To: Patient Relationship to Patient: Pheresis Specialist Name: Delivery Method: HAND - Hand Delivered Hannah Days: Prior Verbal Notification: Recipient Understood Notice: Yes Recipient Signature: Yes Med Rec Note Co-signed by Attending: Coverage Notice Comment: Last DP export: 08/25/18 4:00 p Patient Name: SERVANDO HAYES Page [id number] at 1749 All edits/amendments must be made on the electronic document DICTATION DATE: 08/25/181748 SENIOR WEB ARCHITECT: TRISTAN 08/25/181748 RPT#: [id number] DC DATE: STATUS: ADM IN [facility] [address] [place] [address] END OF REPORT
--- NOTE | ~2018-08-16 | MORECARE ---
CASE MANAGEMENT DISCHARGE SUMMARY PATIENT: SERVANDO HAYES UNIT: [id number] ADM DATE: 08/16/18 AGE: 63 : 59 SEX: M ROOM/BED: D.2140 AUTHOR: MELODY,DOC PHYSICIAN: REFERRING PHYSICIAN: SHILPI RUSS MD DATE OF SERVICE: 08/20/18 Discharge Plan Patient Name: SERVANDO HAYES [facility] [facility] 1955 Planned Disposition: Inpatient Rehab Anticipated Discharge Date: 08/23/18 Discharge Date: Expected LOS: 7 Initial Reviewer: [id number] Initial Review Date: 08/20/2018 Generated: 08/20/18 7:09 pm Comments DCP- Discharge Planning Updated by [id number]: Navin Geronimo on 08/20/18 5:[address] Patient Name: SERVANDO HAYES Admission Status: ER Accout number: [id number] Admission Date: 08-16-2018 : 1955 Admission Diagnosis:SHORTNESS OF BREATH Attending: SHILPI RUSS Current LOS: 4 Anticipated DC Date: 08-23-2018 Planned Disposition: Inpatient Rehab Primary Insurance: [facility] MEDICARE [employer] PLANNED EXTERNAL PROVIDER: PLANNED EXTERNAL PROVIDER: [facility] INPATIENT REHAB Discharge Planning Comments: CM RECEIVED INPATIENT REHAB PRESCREENING ORDER, MET WITH PT IN ROOM TO DISCUSS DISCHARGE PLANNING AND NEEDS. PT REPORTS LIVING AT HOME DEPENDENTLY WITH HER ADULT DAUGHTER. PT REPORTS HAVING TRILOGY, HOME OXYGEN, NEBLUIZER AND WALKER WELL A SCOOTER; MEDICAL EQUIPMENT FROM [facility] IN [place]. PT HAS HOME HEALTH WITH [facility] [employer] AT HOME. CM DISCUSSED AVAILABILITY OF HOME HEALTH, REHAB SERVICES AND MEDICAL EQUIPMENT. PT IS AGREEABLE TO REHAB AT [facility] WITH PLAN TO DISCHARGE HOME FROM HOSPITAL REHAB; PT REPORTS HIS DAUGHTER WILL PICK HER UP FOR DISCHARGE HOME. PT WOULD LIKE TO TRY INPATIENT REHAB FIRST BUT DOES NOT KNOW IF INSURANCE WILL APPROVE IT HE WAS IN [facility] IN [place] TWO WEEKS AGO. PT STATES THAT IF INSURANCE WILL NOT PAY FOR INPATIENT REHAB AT [facility], HE WILL CONSENT TO [facility] REH[facility] WITH NO PROVIDER PREFERNECE, CHOICE SIGNED FOR SNF WITH NO PROVIDER PREFERENCE. IMPORTANT MESSAGE FROM MEDICARE PROVIDED AND EXPLAINED. CM WAITING COMPLETION OF INPATIENT REHAB PRESCREENING AND ADMISSION DETERMINATION FROM [facility] INPATIENT REHAB. NAVIN GERONIMO, CASE MANAGEMENT DCP- Discharge Planning Updated by [id number]: Sulma Wang on 08/19/18 10:[address] I RECEIVED A CALL FROM MARILYNN LAKHANI RESET MERCHANDISER WITH CHRONIC DISEASE DIVISION OF [facility] ([phone] EXT. [phone]). SHE ASKED FOR AN UPDATE ON THE PATIENTS STATUS AND DISCHARGE PLANS. SHE EXPLAINED THAT HE HAS BEEN A FREQUENT FLYER FOR HOSPITAL ADMISSIONS, AND HAD BEEN UNSAFE TO LIVE AT HOME ALONE. SHE STATED THAT HE MOVED IN WITH HIS DAUGHTER, WHO WORKS AND HAS A CHILD, AND SHE WAS UNSURE IF HE WOULD BE SAFE TO RETURN HOME. I EXPLAINED THAT WE RECEIVED AN ORDER FOR REHAB PRESCREEN ON THE PATIENT, AND THEREFORE WE WOULD BE WORKING ON REHAB. I READ HIS PHYSICAL THERAPY EVAL AND NOTES TO HER. WE DON'T BELIEVE THAT IPR WILL BE GOOD FOR THE PATIENT, AND THAT SNF MAY BE THE MOST APPROPRIATE. SHE HAS REQUESTED THAT SHE BE CALLED IF SHE COULD BE OF ASSISTANCE IN ANY WAY WITH DISCHARGE. DCPIA - Discharge Planning Initial Assessment Updated by [id number]: Navin Geronimo on 08/20/18 6:01 pm * Is the patient Alert and Oriented? Yes * How many steps to enter\exit or inside your home? RAMP * PCP DR. KOBE FERREIRA IN [place] * Pharmacy [facility] * Preadmission Environment Home with Family * ADLs Partial Dependent * Partial ADLs (Assistance needed) Ambulation * Equipment Nebulizer Other Oxygen Walker * Other Equipment HOME AND PORTABLE OXYGEN TRILOGY MACHINE POWER SCOOTER * List name and contact numbers for known caregivers / representatives who currently or will assist patient after discharge: [employer] IN [place], MEDICAL EQUIOPMENT PROVIDER * Verbal permission to speak to the caregivers and representatives has been obtained from the patient. N/A * Community resources currently utilized Home Health * Please name any agencies selected above. [facility] * Additional services required to return to the preadmission environment? Yes * Can the patient safely return to the preadmission environment? Yes * Has this patient been hospitalized within the prior 30 days at any hospital? Yes Coverage Notice Reviewer: [id number] - Navin Geronimo Notice Issued Date-Time: 08/20/2018 17:00 Notice Type: Patient Choice Letter Notice Delivered To: Patient Relationship to Patient: Transitional Nurse Name: Delivery Method: HAND - Hand Delivered Hannah Days: Prior Verbal Notification: Recipient Understood Notice: Yes Recipient Signature: Yes Med Rec Note Co-signed by Attending: Coverage Notice Comment: NO SNF PREFERNCE IF DECLINED FOR INPT REHAB Reviewer: [id number] Baldomero Geronimo Notice Issued Date-Time: 08/20/2018 17:00 Notice Type: IM Discharge Notice Notice Delivered To: Patient Relationship to Patient: Transitional Nurse Name: Delivery Method: HAND - Hand Delivered Hannah Days: Prior Verbal Notification: Recipient Understood Notice: Yes Recipient Signature: Yes Med Rec Note Co-signed by Attending: Coverage Notice Comment: Last DP export: 08/20/18 5:00 Patient Name: SERVANDO HAYES Page [id number] at 1809 All edits/amendments must be made on the electronic document DICTATION DATE: 08/20/181807 MARINE CARGO SPECIALIST: TRISTAN 08/20/181807 RPT#: [id number] DC DATE: STATUS: ADM IN [facility] [address] [place] [address] END OF REPORT
--- NOTE | ~2018-08-16 | CN ---
PATIENT NAME:SERVANDO HAYES MEDICAL RECORD: [id number] : [birth year] LOCATION:. D.2140 ADMIT DATE: 08/16/18 ACCOUNT: [id number] CONSULTING PHYSICIAN: NELIDA RUIZ MD REFERRING PHYSICIAN: RAFA RUSS MD DATE OF CONSULTATION: 08/17/2018 CONSULT REQUESTING PHYSICIAN: Rafa Russ MD REASON FOR CONSULTATION: Acute exacerbation of chronic obstructive pulmonary disease, pneumonia. HISTORY OF PRESENT ILLNESS: Mr. Hayes is a 63-year-old gentleman who has a history of severe COPD. He is on Trilogy at home. According to the patient, he is sick for the last few days. He is coughing. He is wheezing. He has shortness of breath. The patient came into the ER, found out that he has pneumonia in the right middle lobe. Now, he is feeling a little bit better. He is also having hypercarbia at 76. REVIEW OF SYSTEMS: As in history of present illness. PAST MEDICAL HISTORY: 1. COPD. 2. Chronic hypoxic respiratory failure. 3. Gastroesophageal reflux disease. 4. History of bleeding ulcer. 5. Obstructive sleep apnea. 6. Congestive heart failure. 7. History of cerebrovascular accident. ALLERGIES: There are no known drug allergies. MEDICATIONS: [employer] is reviewed. PERSONAL AND SOCIAL HISTORY: The patient is an ex-smoker. He is a nondrinker. FAMILY HISTORY: Noncontributory. PHYSICAL EXAMINATION: GENERAL: Now, the patient is lying comfortably, but he is not in acute distress. VITAL SIGNS: The blood pressure is 128/81, pulse is 81 to 124, temperature 98.2, SpO2 93% on 2 liters nasal cannula. HEENT: Conjunctivae are pink. Sclerae are not icteric. NECK: Supple, no JVD. CHEST: The chest excursion is minimal on both sides. There is no wheeze, no rales. HEART: Rhythm regular, normal sound, no murmur. ABDOMEN: Soft, bowel sounds present. No hepatosplenomegaly. RECTAL: Deferred. EXTREMITIES: No cyanosis, no clubbing, no pedal edema. CENTRAL NERVOUS SYSTEM: The patient is awake and alert. There is no obvious gait abnormality. The gait was not tested. LABORATORY DATA: CBC: WBC 8.3, hemoglobin 11.6, hematocrit 37.3, the platelet CONSULT REPORT [id number] SERVANDO HAYES count 189. Chemistry: Sodium 143, potassium 4.2, BUN is 12, creatinine 0.7. ABG: The pH is 7.37, pCO2 is 78.6, the pO2 is 81, bicarbonate 46.3. IMPRESSION: 1. Aqcbb-ld-fbitpzj hypoxic hypercapnic respiratory failure. 2. Compensatory respiratory acidosis. 3. Acute exacerbation of chronic obstructive pulmonary disease. 4. Right middle lobe pneumonia. 5. A 1.2 cm soft tissue density in the left bronchus, possible mucous. 6. Obstructive sleep apnea. RECOMMENDATIONS: 1. Start albuterol/ipratropium nebulizer. 2. Brovana and budesonide nebulizer. 3. Cefepime and Levaquin IV. 4. Methylprednisolone IV. 5. Mucinex 1200 mg b.i.d. 6. The patient can use his own Trilogy. 7. Check the ammonia level. 8. Follow up labs and chest radiograph. Dr. Russ, thank you, for involving me in the care of Mr. Hayes. TRANSINT:[id number] Voice Confirmation ID: [id number] DOCUMENT ID: [id number] NELIDA RUIZ MD at 1711 CC: [id number] DICTATION DATE: 08/17/18 1601 MONITORING AND EVALUATION ADVISOR: 08/17/18 2044 ADM IN [place] [id number] [place] [id number]
[~2018-08-16 15:50] MED LIST: ALBUTEROL2.5 MG/3 M INH; BROVANA15 MCG/2 M INH; CARAFATE1 G; CARAFATE1 G/10 ML PO; CHOLESTEROL PILL; DALIRESP500 MCG PO; FLORAJEN3 CAPS460 MG PO; FLUTICASONE PRO16 GM NASAL; FUROSEMIDE10 MG/M1; IPRAT-ALBUT 0.5-3 ML INH; LEVAQUIN750 MG PO; MUCINEX DM ER1 EAC1 PO; MYLANTA II SUSP30 ML PO; NORCO 10-325 TA1 TAB PO; OMEPRAZOLE20 M1; POTASSIUM99 M1 PO; PREDNISONE10 MG PO; PREDNISONE2.5 MG; PROTONIX40 MG PO; PULMICORT0.5 MG/21 UPD; SINGULAIR10 MG PO; TESSALON PERLE100 MG PO; XANAX0.25 MG PO
[2018-08-16 16:50] LABS: BASOPHILS 0.1 % (0-2); EOSINOPHILS 0 % (0-7); HEMATOCRIT 41.7 % (42.0-54.0); HEMOGLOBIN 13.2 g/dL (13.5-17.5); IMMATURE GRANULOCYTES 1.2 % (0-5); LYMPHOCYTES 8.3 % (15-50); MCH 31.1 pg (26.0-34.0); MCHC 31.7 g/dL (31.0-37.0); MCV 98.1 fL (80.0-100.0); MEAN PLATELET VOLUME 9.6 fL (7.4-10.4); MONOCYTES 5.2 % (2-11); NEUTROPHILS 85.2 % (40-80); RBC 4.25 10x6/uL (4.20-6.10); RDW 14.1 % (11.5-14.5); WBC 8.2 10x3/uL (4.8-10.8)
[2018-08-16 16:51] LABS: PLATELET COUNT 207 10x3/uL (130-400)
[2018-08-16 17:00] VITALS: BP 118/80
[2018-08-16 17:24] LABS: ALBUMIN 2.9 g/dL (3.4-5.0); ALKALINE PHOSPHATASE 195 U/L (46-116); ALT (SGPT) 62 U/L (10-68); BILIRUBIN - TOTAL 0.32 mg/dL (0.2-1.3); CALCIUM 9.5 mg/dL (8.5-10.1); CHLORIDE - SERUM 99 mmol/L (98-107); CKMB 1.8 U/L (0.0-3.6); CREATINE KINASE 29 UL (21-232); CREATININE - SERUM 0.9 mg/dL (0.6-1.3); POTASSIUM - SERUM 3.7 mmol/L (3.5-5.1); PRO BNP 153 pg/mL (0-125); PROTEIN - SERUM 6.5 g/dL (6.4-8.2); SODIUM 143 mmol/L (136-145); TROPONIN-I < 0.017 ng/mL (0.000-0.060); UREA NITROGEN 10 mg/dL (7-18); eGFR NON AFRICAN AMERICAN > 90 mL/min (90-120)
[2018-08-16 17:26] LABS: CALC OSMOLALITY 286 mosm/kg (275-300); GLUCOSE 144 mg/dL (74-106)
[2018-08-16 17:29] LABS: CARBON DIOXIDE 44.1 mmol/L (21.0-32.0)
[2018-08-16 18:00] VITALS: BP 114/83
[2018-08-16 19:00] VITALS: BP 127/85
[2018-08-17 00:45] VITALS: BP 120/87; BP 127/85; BMI 22.4
[2018-08-17 04:57] VITALS: BP 122/85
[2018-08-17 06:21] LABS: BASOPHILS 0.1 % (0-2); EOSINOPHILS 0 % (0-7); HEMATOCRIT 37.3 % (42.0-54.0); HEMOGLOBIN 11.6 g/dL (13.5-17.5); IMMATURE GRANULOCYTES 1.2 % (0-5); LYMPHOCYTES 5.3 % (15-50); MCH 30.4 pg (26.0-34.0); MCHC 31.1 g/dL (31.0-37.0); MCV 97.9 fL (80.0-100.0); MONOCYTES 2.4 % (2-11); PLATELET COUNT 189 10x3/uL (130-400); RBC 3.81 10x6/uL (4.20-6.10); WBC 8.3 10x3/uL (4.8-10.8)
[2018-08-17 06:52] LABS: ALBUMIN 2.5 g/dL (3.4-5.0); ALKALINE PHOSPHATASE 155 U/L (46-116); ALT (SGPT) 49 U/L (10-68); BILIRUBIN - TOTAL 0.21 mg/dL (0.2-1.3); CALC OSMOLALITY 288 mosm/kg (275-300); CALCIUM 8.8 mg/dL (8.5-10.1); CARBON DIOXIDE 39.5 mmol/L (21.0-32.0); CHLORIDE - SERUM 104 mmol/L (98-107); CREATININE - SERUM 0.7 mg/dL (0.6-1.3); GLUCOSE 162 mg/dL (74-106); POTASSIUM - SERUM 4.2 mmol/L (3.5-5.1); PROTEIN - SERUM 5.4 g/dL (6.4-8.2); SODIUM 143 mmol/L (136-145); UREA NITROGEN 12 mg/dL (7-18); eGFR NON AFRICAN AMERICAN > 90 mL/min (90-120)
[2018-08-17] MEDS ORDERED: PREDNISONE20 MG PO (08:08)
[2018-08-17] MEDS ORDERED: FLUTICASONE PRO16 GM NASAL (08:10)
[2018-08-17] MEDS ORDERED: COMBIVENT RESPIM4 GM INH (08:11)
[2018-08-17] MEDS ORDERED: IPRAT-ALBUT 0.5-3 ML UPD (08:13)
[2018-08-17] MEDS ORDERED: PROTONIX40 MG PO (08:13)
[2018-08-17] MEDS ORDERED: VENTOLIN HFA18 GM INH (08:14)
[2018-08-17 08:40] VITALS: BP 142/70
[2018-08-17 12:22] VITALS: BP 128/81
[2018-08-17 15:10] VITALS: Ht 185.4 cm; Wt 80.5 kg
[2018-08-17 20:42] VITALS: BP 108/64
[2018-08-18 01:09] VITALS: BP 110/78
[2018-08-18 04:48] VITALS: BP 123/80
[2018-08-18 06:15] LABS: BASOPHILS 0.1 % (0-2); EOSINOPHILS 0 % (0-7); HEMATOCRIT 35.5 % (42.0-54.0); HEMOGLOBIN 10.9 g/dL (13.5-17.5); IMMATURE GRANULOCYTES 0.6 % (0-5); LYMPHOCYTES 4.1 % (15-50); MCHC 30.7 g/dL (31.0-37.0); MCV 97.8 fL (80.0-100.0); MEAN PLATELET VOLUME 9.7 fL (7.4-10.4); MONOCYTES 6.2 % (2-11); PLATELET COUNT 183 10x3/uL (130-400); RBC 3.63 10x6/uL (4.20-6.10); RDW 13.8 % (11.5-14.5)
[2018-08-18 06:19] LABS: WBC 14.3 10x3/uL (4.8-10.8)
[2018-08-18 06:39] LABS: ALBUMIN 2.5 g/dL (3.4-5.0); ALKALINE PHOSPHATASE 144 U/L (46-116); ALT (SGPT) 41 U/L (10-68); BILIRUBIN - TOTAL 0.13 mg/dL (0.2-1.3); CALC OSMOLALITY 291 mosm/kg (275-300); CALCIUM 8.6 mg/dL (8.5-10.1); CARBON DIOXIDE 34.8 mmol/L (21.0-32.0); CHLORIDE - SERUM 108 mmol/L (98-107); CREATININE - SERUM 0.7 mg/dL (0.6-1.3); GLUCOSE 137 mg/dL (74-106); MAGNESIUM - SERUM 2.8 mg/dL (1.8-2.4); PROTEIN - SERUM 5.4 g/dL (6.4-8.2); SODIUM 145 mmol/L (136-145); UREA NITROGEN 15 mg/dL (7-18); eGFR NON AFRICAN AMERICAN > 90 mL/min (90-120)
[2018-08-18 08:09] VITALS: BP 108/79
[2018-08-18 11:25] VITALS: BP 101/68
[2018-08-18 16:00] VITALS: BP 114/70
[2018-08-18 21:30] VITALS: BP 118/68
[2018-08-19 00:57] VITALS: BP 102/72
[2018-08-19 05:32] VITALS: BP 121/78
[2018-08-19 06:01] LABS: BASOPHILS 0.1 % (0-2); EOSINOPHILS 0 % (0-7); HEMATOCRIT 36.7 % (42.0-54.0); HEMOGLOBIN 11.5 g/dL (13.5-17.5); IMMATURE GRANULOCYTES 1.6 % (0-5); LYMPHOCYTES 5.6 % (15-50); MCH 30.7 pg (26.0-34.0); MCHC 31.3 g/dL (31.0-37.0); MCV 97.9 fL (80.0-100.0); MEAN PLATELET VOLUME 9.6 fL (7.4-10.4); MONOCYTES 7.3 % (2-11); NEUTROPHILS 85.4 % (40-80); PLATELET COUNT 189 10x3/uL (130-400); RBC 3.75 10x6/uL (4.20-6.10); WBC 12.2 10x3/uL (4.8-10.8)
[2018-08-19 06:24] LABS: ALBUMIN 2.6 g/dL (3.4-5.0); ALKALINE PHOSPHATASE 145 U/L (46-116); ALT (SGPT) 43 U/L (10-68); BILIRUBIN - TOTAL 0.16 mg/dL (0.2-1.3); CALC OSMOLALITY 291 mosm/kg (275-300); CALCIUM 8.2 mg/dL (8.5-10.1); CARBON DIOXIDE 32.3 mmol/L (21.0-32.0); CHLORIDE - SERUM 110 mmol/L (98-107); CREATININE - SERUM 0.7 mg/dL (0.6-1.3); GLUCOSE 109 mg/dL (74-106); MAGNESIUM - SERUM 2.5 mg/dL (1.8-2.4); POTASSIUM - SERUM 3.8 mmol/L (3.5-5.1); PROTEIN - SERUM 5.8 g/dL (6.4-8.2); SODIUM 145 mmol/L (136-145); UREA NITROGEN 17 mg/dL (7-18); eGFR NON AFRICAN AMERICAN > 90 mL/min (90-120)
[2018-08-19 08:01] VITALS: BP 110/79
[2018-08-19 11:52] VITALS: BP 120/86
[2018-08-19 15:20] VITALS: BP 100/67
[2018-08-19 21:34] VITALS: BP 115/74
[2018-08-20 01:20] VITALS: BP 118/75
[2018-08-20 06:38] VITALS: BP 124/83
[2018-08-20 06:54] LABS: ALBUMIN 2.6 g/dL (3.4-5.0); ALKALINE PHOSPHATASE 137 U/L (46-116); ALT (SGPT) 41 U/L (10-68); BILIRUBIN - TOTAL 0.22 mg/dL (0.2-1.3); CALCIUM 8.1 mg/dL (8.5-10.1); CARBON DIOXIDE 28.5 mmol/L (21.0-32.0); CHLORIDE - SERUM 109 mmol/L (98-107); MAGNESIUM - SERUM 2.5 mg/dL (1.8-2.4); PROTEIN - SERUM 5.6 g/dL (6.4-8.2); SODIUM 143 mmol/L (136-145); UREA NITROGEN 21 mg/dL (7-18)
[2018-08-20 06:55] LABS: CALC OSMOLALITY 291 mosm/kg (275-300); CREATININE - SERUM 0.9 mg/dL (0.6-1.3); GLUCOSE 162 mg/dL (74-106); POTASSIUM - SERUM 4.5 mmol/L (3.5-5.1); eGFR NON AFRICAN AMERICAN > 90 mL/min (90-120)
[2018-08-20 06:57] LABS: BASOPHILS 0.1 % (0-2); EOSINOPHILS 0 % (0-7); HEMATOCRIT 36.3 % (42.0-54.0); HEMOGLOBIN 11.4 g/dL (13.5-17.5); IMMATURE GRANULOCYTES 2.2 % (0-5); LYMPHOCYTES 3.7 % (15-50); MCH 30.7 pg (26.0-34.0); MCHC 31.4 g/dL (31.0-37.0); MCV 97.8 fL (80.0-100.0); MEAN PLATELET VOLUME 9.8 fL (7.4-10.4); MONOCYTES 4.2 % (2-11); NEUTROPHILS 89.8 % (40-80); PLATELET COUNT 181 10x3/uL (130-400); RBC 3.71 10x6/uL (4.20-6.10); RDW 13.8 % (11.5-14.5); WBC 11.2 10x3/uL (4.8-10.8)
[2018-08-20 09:41] VITALS: BP 114/83
[2018-08-20 13:11] VITALS: BP 104/79
[2018-08-20 16:47] VITALS: BP 108/71
[2018-08-20 20:00] VITALS: BP 119/74
[2018-08-21] VITALS: BP 118/79
[2018-08-21 04:00] VITALS: BP 123/83
[2018-08-21 07:36] LABS: BASOPHILS 0.3 % (0-2); EOSINOPHILS 0 % (0-7); HEMATOCRIT 33.6 % (42.0-54.0); HEMOGLOBIN 10.8 g/dL (13.5-17.5); IMMATURE GRANULOCYTES 4.1 % (0-5); LYMPHOCYTES 4.3 % (15-50); MCH 30.3 pg (26.0-34.0); MCHC 32.1 g/dL (31.0-37.0); MEAN PLATELET VOLUME 9.7 fL (7.4-10.4); MONOCYTES 6.4 % (2-11); NEUTROPHILS 84.9 % (40-80); PLATELET COUNT 207 10x3/uL (130-400); RBC 3.56 10x6/uL (4.20-6.10); RDW 13.6 % (11.5-14.5); WBC 10.5 10x3/uL (4.8-10.8)
[2018-08-21 07:41] LABS: MCV 94.4 fL (80.0-100.0)
[2018-08-21 08:12] LABS: ALBUMIN 2.5 g/dL (3.4-5.0); ALKALINE PHOSPHATASE 119 U/L (46-116); ALT (SGPT) 44 U/L (10-68); BILIRUBIN - TOTAL 0.16 mg/dL (0.2-1.3); CALC OSMOLALITY 289 mosm/kg (275-300); CALCIUM 8.2 mg/dL (8.5-10.1); CARBON DIOXIDE 26.3 mmol/L (21.0-32.0); CHLORIDE - SERUM 108 mmol/L (98-107); GLUCOSE 209 mg/dL (74-106); MAGNESIUM - SERUM 2.4 mg/dL (1.8-2.4); PROTEIN - SERUM 5.2 g/dL (6.4-8.2); SODIUM 141 mmol/L (136-145); UREA NITROGEN 22 mg/dL (7-18)
[2018-08-21 08:13] LABS: CREATININE - SERUM 0.6 mg/dL (0.6-1.3); eGFR NON AFRICAN AMERICAN > 90 mL/min (90-120)
[2018-08-21 09:50] VITALS: BP 122/88
[2018-08-21 16:40] VITALS: BP 123/81
[2018-08-21 20:00] VITALS: BP 123/79
[2018-08-22] VITALS: BP 117/78
[2018-08-22 04:00] VITALS: BP 118/76
[2018-08-22 06:39] LABS: BASOPHILS 0.3 % (0-2); EOSINOPHILS 0 % (0-7); LYMPHOCYTES 4.2 % (15-50); MCH 30.5 pg (26.0-34.0); MCHC 32.4 g/dL (31.0-37.0); MCV 94.2 fL (80.0-100.0); MEAN PLATELET VOLUME 9.7 fL (7.4-10.4); MONOCYTES 5.6 % (2-11); NEUTROPHILS 81.9 % (40-80); PLATELET COUNT 224 10x3/uL (130-400); RBC 3.61 10x6/uL (4.20-6.10); RDW 13.7 % (11.5-14.5); WBC 10.7 10x3/uL (4.8-10.8)
[2018-08-22 06:51] LABS: APTT 20.1 SECONDS (22.8-39.4); INR 1.05 (0.85-1.17); PROTIME 13.2 SECONDS (11.6-15.0)
[2018-08-22 06:58] LABS: ALBUMIN 2.5 g/dL (3.4-5.0); ALKALINE PHOSPHATASE 116 U/L (46-116); ALT (SGPT) 50 U/L (10-68); AMYLASE - SERUM 53 U/L (25-115); BILIRUBIN - TOTAL 0.18 mg/dL (0.2-1.3); CALC OSMOLALITY 290 mosm/kg (275-300); CALCIUM 8.1 mg/dL (8.5-10.1); CARBON DIOXIDE 26.5 mmol/L (21.0-32.0); CHLORIDE - SERUM 107 mmol/L (98-107); CREATININE - SERUM 0.7 mg/dL (0.6-1.3); GLUCOSE 215 mg/dL (74-106); LIPASE 237 U/L (73-393); MAGNESIUM - SERUM 2.2 mg/dL (1.8-2.4); POTASSIUM - SERUM 4.2 mmol/L (3.5-5.1); PROTEIN - SERUM 5.2 g/dL (6.4-8.2); SODIUM 141 mmol/L (136-145); UREA NITROGEN 23 mg/dL (7-18); eGFR NON AFRICAN AMERICAN > 90 mL/min (90-120)
[2018-08-22 09:00] VITALS: BP 113/73
[2018-08-22 12:07] VITALS: BP 115/77
[2018-08-22 16:09] VITALS: BP 114/83
[2018-08-22 20:21] VITALS: BP 120/87
[2018-08-23 01:09] VITALS: BP 114/78
[2018-08-23 05:32] VITALS: BP 108/79
[2018-08-23 07:22] LABS: T4 THYROXIN - FREE 0.62 ng/dL (0.76-1.46); THYROID STIMULATING HORMONE 0.16 uIU/mL (0.36-3.74)
[2018-08-23 07:36] LABS: BASOPHILS 0.3 % (0-2); EOSINOPHILS 0 % (0-7); HEMATOCRIT 34.2 % (42.0-54.0); HEMOGLOBIN 10.9 g/dL (13.5-17.5); IMMATURE GRANULOCYTES 9.3 % (0-5); LYMPHOCYTES 4.1 % (15-50); MCHC 31.9 g/dL (31.0-37.0); MCV 94.2 fL (80.0-100.0); MEAN PLATELET VOLUME 9.4 fL (7.4-10.4); MONOCYTES 6.4 % (2-11); NEUTROPHILS 79.9 % (40-80); PLATELET COUNT 241 10x3/uL (130-400); RBC 3.63 10x6/uL (4.20-6.10); RDW 13.8 % (11.5-14.5); WBC 11.5 10x3/uL (4.8-10.8)
[2018-08-23 07:44] LABS: ALBUMIN 2.5 g/dL (3.4-5.0); ALKALINE PHOSPHATASE 113 U/L (46-116); ALT (SGPT) 66 U/L (10-68); BILIRUBIN - TOTAL 0.31 mg/dL (0.2-1.3); CALC OSMOLALITY 293 mosm/kg (275-300); CALCIUM 8.1 mg/dL (8.5-10.1); CHLORIDE - SERUM 107 mmol/L (98-107); CREATININE - SERUM 0.7 mg/dL (0.6-1.3); GLUCOSE 216 mg/dL (74-106); MAGNESIUM - SERUM 2.1 mg/dL (1.8-2.4); PHOSPHOROUS 3.2 mg/dL (2.5-4.9); POTASSIUM - SERUM 4.5 mmol/L (3.5-5.1); PROTEIN - SERUM 5.2 g/dL (6.4-8.2); SODIUM 143 mmol/L (136-145); UREA NITROGEN 19 mg/dL (7-18); eGFR NON AFRICAN AMERICAN > 90 mL/min (90-120)
[2018-08-23 08:36] VITALS: BP 108/72
[2018-08-23 12:58] VITALS: BP 108/66
[2018-08-23 16:23] VITALS: BP 129/83
[2018-08-23 21:04] VITALS: BP 137/81
[2018-08-24] VITALS: BP 128/71
[2018-08-24 05:03] VITALS: BP 133/82
[2018-08-24 07:54] LABS: ANION GAP 10.3 mmol/L (8-16); CARBON DIOXIDE 34.6 mmol/L (21.0-32.0); POTASSIUM - SERUM 4.9 mmol/L (3.5-5.1)
[2018-08-24 08:56] VITALS: BP 133/84
[2018-08-24 09:19] LABS: HEPATITIS C ANTIBODY <0.1 S/CO RAT (0.0-0.9)
[2018-08-24 11:58] VITALS: BP 116/70
[2018-08-24 16:01] VITALS: BP 136/87
[2018-08-24 21:10] VITALS: BP 122/67
[2018-08-25] VITALS: BP 109/82
[2018-08-25 05:44] VITALS: BP 129/82
[2018-08-25 06:43] LABS: ANION GAP 12.2 mmol/L (8-16); CARBON DIOXIDE 36.9 mmol/L (21.0-32.0); POTASSIUM - SERUM 5.1 mmol/L (3.5-5.1)
[2018-08-25 08:33] VITALS: BP 143/87
[2018-08-25 13:45] VITALS: BP 134/88
[2018-08-25] MEDS ORDERED: CARAFATE1 G PO (15:19)
[2018-08-25] MEDS ORDERED: PREDNISONE20 MG PO (15:20)
[2018-08-25 16:10] VITALS: BP 136/94
== END 2018-08-25 19:01 | disposition home health service (06) | DRG 193 ==
LOC: D.ER 15:50 → D.M2 18:56 → D.EDHOLD 18:56 → D.M2 19:11
PROVIDERS: Family Medicine; Internal Medicine Gastroenterology
PROC: 0DB68ZX Excision of Stomach, Via Natural or Artificial Opening Endoscopic, Diagnostic (ICD-10-PCS; 2018-08-22)
PROC: 0DB58ZX Excision of Esophagus, Via Natural or Artificial Opening Endoscopic, Diagnostic (ICD-10-PCS; 2018-08-22)
PROC: 0DB98ZX Excision of Duodenum, Via Natural or Artificial Opening Endoscopic, Diagnostic (ICD-10-PCS; principal; 2018-08-22 07:31)
DX: J18.1 Lobar pneumonia, unspecified organism (principal); J96.22 Acute and chronic respiratory failure with hypercapnia; J96.21 Acute and chronic respiratory failure with hypoxia; J44.0 Chronic obstructive pulmonary disease with (acute) lower respiratory infection; J44.1 Chronic obstructive pulmonary disease with (acute) exacerbation; E44.0 Moderate protein-calorie malnutrition; K74.60 Unspecified cirrhosis of liver; I50.9 Heart failure, unspecified; G47.33 Obstructive sleep apnea (adult) (pediatric); K21.0 Gastro-esophageal reflux disease with esophagitis; K22.8 Other specified diseases of esophagus; K29.90 Gastroduodenitis, unspecified, without bleeding; K31.84 Gastroparesis; Z68.22 Body mass index [BMI] 22.0-22.9, adult

== ENCOUNTER 2018-08-27 12:28 | Emergency (ER) | payer MEDICARE ==
[~2018-08-27] VITALS: Ht 185.4 cm; Wt 80.5 kg
[~2018-08-27 12:28] MED LIST changes: +CARAFATE1 G PO; +COMBIVENT RESPIM4 GM INH; +IPRAT-ALBUT 0.5-3 ML UPD; +PREDNISONE20 MG PO; +VENTOLIN HFA18 GM INH
[2018-08-27 12:33] VITALS: Ht 185.4 cm; Wt 80.5 kg
[2018-08-27 13:48] LABS: BASOPHILS 0.2 % (0-2); EOSINOPHILS 0 % (0-7); HEMATOCRIT 40.5 % (42.0-54.0); HEMOGLOBIN 12.9 g/dL (13.5-17.5); IMMATURE GRANULOCYTES 2.5 % (0-5); LYMPHOCYTES 3.9 % (15-50); MCH 30.8 pg (26.0-34.0); MCHC 31.9 g/dL (31.0-37.0); MCV 96.7 fL (80.0-100.0); MEAN PLATELET VOLUME 9.7 fL (7.4-10.4); MONOCYTES 7.5 % (2-11); NEUTROPHILS 85.9 % (40-80); PLATELET COUNT 247 10x3/uL (130-400); RBC 4.19 10x6/uL (4.20-6.10); RDW 13.9 % (11.5-14.5); WBC 16.2 10x3/uL (4.8-10.8)
[2018-08-27 14:17] LABS: CALC OSMOLALITY 289 mosm/kg (275-300); CALCIUM 9.3 mg/dL (8.5-10.1); CHLORIDE - SERUM 96 mmol/L (98-107); CREATININE - SERUM 0.8 mg/dL (0.6-1.3); GLUCOSE 191 mg/dL (74-106); POTASSIUM - SERUM 3.9 mmol/L (3.5-5.1); SODIUM 142 mmol/L (136-145); UREA NITROGEN 18 mg/dL (7-18); eGFR NON AFRICAN AMERICAN > 90 mL/min (90-120)
[2018-08-27 14:19] LABS: ALT (SGPT) 106 U/L (10-68)
[2018-08-27 14:20] LABS: ALKALINE PHOSPHATASE 152 U/L (46-116); MAGNESIUM - SERUM 2.1 mg/dL (1.8-2.4); PROTEIN - SERUM 5.8 g/dL (6.4-8.2)
[2018-08-27 14:21] LABS: CARBON DIOXIDE 43.6 mmol/L (21.0-32.0)
[2018-08-27 14:23] LABS: CREATINE KINASE 31 UL (21-232)
[2018-08-27 14:26] LABS: TROPONIN-I 0.021 ng/mL (0.000-0.060)
[2018-08-27 14:33] LABS: PRO BNP 277 pg/mL (0-125)
[2018-08-27] MEDS ORDERED: TENORMIN25 MG PO (15:31)
[2018-08-27 18:13] VITALS: BP 112/80
== END 2018-08-27 18:13 | disposition home or self-care (01) ==
LOC: D.ER 12:28
PROVIDERS: Emergency Medicine
DX: R06.00 Dyspnea, unspecified (principal); D64.9 Anemia, unspecified; J44.9 Chronic obstructive pulmonary disease, unspecified; R00.0 Tachycardia, unspecified; Z86.73 Personal history of transient ischemic attack (TIA), and cerebral infarction without residual deficits; I50.9 Heart failure, unspecified

== ENCOUNTER 2018-11-11 19:22 | Emergency (ER) | payer MEDICARE ==
[~2018-11-11] VITALS: Ht 185.4 cm; Wt 70.5 kg
[~2018-11-11 19:22] MED LIST changes: +TENORMIN25 MG PO
[2018-11-11 19:23] VITALS: Ht 185.4 cm; Wt 70.5 kg
[2018-11-11 20:27] LABS: BASOPHILS 0.1 % (0-2); EOSINOPHILS 0 % (0-7); HEMATOCRIT 43.7 % (42.0-54.0); HEMOGLOBIN 13.9 g/dL (13.5-17.5); IMMATURE GRANULOCYTES 0.7 % (0-5); LYMPHOCYTES 5.3 % (15-50); MCH 29.5 pg (26.0-34.0); MCHC 31.8 g/dL (31.0-37.0); MCV 92.8 fL (80.0-100.0); MEAN PLATELET VOLUME 10.3 fL (7.4-10.4); MONOCYTES 5.3 % (2-11); NEUTROPHILS 88.6 % (40-80); PLATELET COUNT 207 10x3/uL (130-400); RBC 4.71 10x6/uL (4.20-6.10); RDW 14.7 % (11.5-14.5); WBC 11.6 10x3/uL (4.8-10.8)
[2018-11-11 20:59] LABS: ALKALINE PHOSPHATASE 98 U/L (46-116); ALT (SGPT) 42 U/L (10-68); CALCIUM 8.6 mg/dL (8.5-10.1); CHLORIDE - SERUM 98 mmol/L (98-107); CREATININE - SERUM 0.9 mg/dL (0.6-1.3); PRO BNP 116 pg/mL (0-125); SODIUM 144 mmol/L (136-145); UREA NITROGEN 15 mg/dL (7-18); eGFR NON AFRICAN AMERICAN > 90 mL/min (90-120)
[2018-11-11 21:01] LABS: CALC OSMOLALITY 289 mosm/kg (275-300); GLUCOSE 136 mg/dL (74-106)
[2018-11-11 21:02] LABS: CARBON DIOXIDE 42.1 mmol/L (21.0-32.0); TROPONIN-I < 0.017 ng/mL (0.000-0.060)
[2018-11-11] MEDS ORDERED: TORADOL10 MG PO (21:37)
[2018-11-12 00:45] VITALS: BP 108/70
== END 2018-11-12 00:45 | disposition home or self-care (01) ==
LOC: D.ER 19:22
PROVIDERS: Family Medicine
DX: J44.1 Chronic obstructive pulmonary disease with (acute) exacerbation (principal); K74.60 Unspecified cirrhosis of liver; M25.551 Pain in right hip; Z86.79 Personal history of other diseases of the circulatory system; R09.89 Other specified symptoms and signs involving the circulatory and respiratory systems; R06.2 Wheezing; Z86.73 Personal history of transient ischemic attack (TIA), and cerebral infarction without residual deficits; W18.30XA Fall on same level, unspecified, initial encounter; Y93.89 Activity, other specified; Y92.019 Unspecified place in single-family (private) house as the place of occurrence of the external cause

== ENCOUNTER 2018-11-15 11:45 | Inpatient (IN) | payer MEDICARE ==
[~2018-11-15] VITALS: Ht 185.4 cm; Wt 81.8 kg
[2018-11-15] VITALS (8 sets, daily range): BP systolic 54–140; BP diastolic 12–92; Ht 185.4 cm; Wt 81.8 kg
[~2018-11-15 11:45] MED LIST changes: +TORADOL10 MG PO
--- NOTE | 2018-11-15 11:56 | NUR ---
DR. DÍAZ AT BEDSIDE FOR INTUBATION.
--- NOTE | 2018-11-15 12:01 | NUR ---
PT INTUBATED WITH 7.[address] DÍAZ. 21CM AT THE LIP. PLACEMENT VERIFIED BY CXR.
--- NOTE | 2018-11-15 12:10 | NUR ---
IN ROOM TO PLACE LIMA CATHETER AND PATIENT NOTED TO BE BECOMING BRADYCARDIC, ATTEMPTED TO OBTAIN A BP AND IT WOULD NOT READ, ER PROVIDER SUMMONED TO ROOM AND CODE INITIATED, PLEASE SEE CODE BLUE RECORD. ROSC OBTAINED AT 1227.
[2018-11-15 12:21] LABS: HEMATOCRIT 47.3 % (42.0-54.0); HEMOGLOBIN 14.2 g/dL (13.5-17.5); MCH 29.9 pg (26.0-34.0); MCV 99.6 fL (80.0-100.0); MEAN PLATELET VOLUME 9.9 fL (7.4-10.4); PLATELET COUNT 215 10x3/uL (130-400); RBC 4.75 10x6/uL (4.20-6.10); RDW 14.9 % (11.5-14.5); WBC 20.8 10x3/uL (4.8-10.8)
[2018-11-15 12:35] LABS: ALBUMIN 3.3 g/dL (3.4-5.0); ALKALINE PHOSPHATASE 242 U/L (46-116); ALT (SGPT) 146 U/L (10-68); BILIRUBIN - TOTAL 0.99 mg/dL (0.2-1.3); CALC OSMOLALITY 288 mosm/kg (275-300); CHLORIDE - SERUM 100 mmol/L (98-107); CKMB 2.3 U/L (0.0-3.6); CREATINE KINASE 62 UL (21-232); CREATININE - SERUM 1.1 mg/dL (0.6-1.3); POTASSIUM - SERUM 4.6 mmol/L (3.5-5.1); PRO BNP 1536 pg/mL (0-125); SODIUM 145 mmol/L (136-145); UREA NITROGEN 19 mg/dL (7-18); eGFR NON AFRICAN AMERICAN 72 mL/min (90-120)
[2018-11-15 12:36] LABS: GLUCOSE 66 mg/dL (74-106)
--- NOTE | 2018-11-15 12:45 | NUR ---
BP STILL READING 112/12, MANUAL READING OF 70/20 OBTAINED, ER PROVIDER NOTIFIED, TOLD TO TAKE THE PATIENT TO ICU, PORTABLE MONITORING ESTABLISHED AND PATIENT BEING EXTERNALLY PACED, TRANSFERRED VIA STRETCHER TO ICU.
[2018-11-15 12:48] LABS: INR 1.09 (0.85-1.17); PROTIME 13.6 SECONDS (11.6-15.0)
[2018-11-15 12:55] LABS: CARBON DIOXIDE 43.1 mmol/L (21.0-32.0)
[2018-11-15 13:22] LABS: LYMPHOCYTES 14 % (15-50); MONOCYTES 14 % (2-11); NEUTROPHILS 70 % (40-80); PLATELET ESTIMATE NORMAL
--- NOTE | 2018-11-15 13:25 | NUR ---
PT BECOMING BRADYCARDIC. EDP AT BEDSIDE, EPINEPHRINE PUSHED PER EDP AT THIS TIME HEART RATE 42. PT PLACED ON EXTERNAL PACER AT 60 WITH A CURRENT OF 70.
--- NOTE | 2018-11-15 13:50 | NUR ---
PT ARRIVED ON UNIT VIA STRETCHER, PT ASYSTOLE AT THIS TIME, CODE BLUE CALLED, SEE CODE BLUE SHEET
--- NOTE | 2018-11-15 14:00 | NUR ---
UPON TRANSFER TO ICU STRETCHER IN ROOM 2307, THE PATIENT BECAME PULSELESS AND A CODE WAS INITIATED.
--- NOTE | 2018-11-15 14:02 | NUR ---
PT ASYSTOLE ON THE MONITOR, DR. GROSS AT BEDSIDE, TO PRONOUNCE,
--- NOTE | 2018-11-15 14:08 | NUR ---
FAMILY NOTIFIED OF PT PASSING
--- NOTE | 2018-11-15 14:55 | NUR ---
DIGITAL PRE PRESS OPERATOR NOTIFIED OF PT
--- NOTE | 2018-11-15 15:07 | NUR ---
CHIP NOTIFIED OF PT
--- NOTE | 2018-11-15 17:24 | NUR ---
NOTIFIED OF NEED OF SERVICES
--- NOTE | 2018-11-15 17:28 | NUR ---
WASHER OPERATOR AND CHIP NOTIFIED OF HOME
--- NOTE | 2018-11-15 18:35 | NUR ---
HOME HERE FOR PT
== END 2018-11-15 18:35 | DRG 208 ==
LOC: D.ER 11:45 → D.EDHOLD 12:50 → D.ICU 13:48
PROVIDERS: Emergency Medicine; ADMIT Internal Medicine Nephrology
PROC: 5A1935Z Respiratory Ventilation, Less than 24 Consecutive Hours (ICD-10-PCS; principal; 2018-11-15)
PROC: 0BH17EZ Insertion of Endotracheal Airway into Trachea, Via Natural or Artificial Opening (ICD-10-PCS; 2018-11-15)
PROC: 5A12012 Performance of Cardiac Output, Single, Manual (ICD-10-PCS; 2018-11-15)
PROC: 5A1223Z Performance of Cardiac Pacing, Continuous (ICD-10-PCS; 2018-11-15)
DX: J96.92 Respiratory failure, unspecified with hypercapnia (principal); K21.9 Gastro-esophageal reflux disease without esophagitis; G47.33 Obstructive sleep apnea (adult) (pediatric); R41.82 Altered mental status, unspecified; K74.60 Unspecified cirrhosis of liver; J44.9 Chronic obstructive pulmonary disease, unspecified; I95.9 Hypotension, unspecified; I50.9 Heart failure, unspecified; I46.8 Cardiac arrest due to other underlying condition